=== PATIENT | female | born 1995 | race African-American/Black ===

== ENCOUNTER 2019-10-13 13:55 | Observation (INO) | payer OTHER ==
[~2019-10-13] VITALS: Ht 167.6 cm; Wt 101.2 kg
[2019-10-13 14:52] LABS: BASOPHILS % 0.7 % (0.0-1.0); EOSINOPHILS % 0.9 % (0.0-6.0); HEMATOCRIT 39.5 % (34.2-44.1); HEMOGLOBIN 12.5 g/dL (12.0-16.0); LYMPHOCYTES # (AUTO) 1.6 (1.0-3.2); MEAN CORPUSCULAR HEMOGLOBIN 25.7 pg (28-32); MEAN CORPUSCULAR HGB CONC 31.6 g/dL (31-35); MEAN CORPUSCULAR VOLUME 81.1 fL (81-99); MONOCYTES # (AUTO) 0.5 (0.2-0.8); MONOCYTES % 9.9 % (4.4-11.3); NEUTROPHILS # (AUTO) 2.4 (2.1-6.9); NEUTROPHILS % 53.3 % (38.7-80.0); PLATELET COUNT 250 x10e3/uL (140-360); RED BLOOD COUNT 4.87 x10e6/uL (3.6-5.1); RED CELL DISTRIBUTION WIDTH 13.7 % (11.7-14.4)
[2019-10-13 15:12] LABS: ALANINE AMINOTRANSFERASE 99 IU/L (0-55); ALBUMIN 3.8 g/dL (3.5-5.0); ALBUMIN/GLOBULIN RATIO 0.9 (0.8-2.0); ALKALINE PHOSPHATASE 112 IU/L (40-150); ANION GAP 13.4 mmol/L (8-16); BLOOD UREA NITROGEN 7 mg/dL (7-26); BUN/CREATININE RATIO 10 (6-25); CALCIUM 9.2 mg/dL (8.4-10.2); CARBON DIOXIDE 24 mmol/L (22-29); CHLORIDE 104 mmol/L (98-107); CREATININE, SERUM 0.73 mg/dL (0.57-1.11); EST GLOMERULAR FILTRATION RATE > 60 ML/MIN (60-); GLUCOSE 89 mg/dL (74-118); POTASSIUM 3.4 mmol/L (3.5-5.1); SODIUM 138 mmol/L (136-145)
--- NOTE | 2019-10-13 15:20 | Emergency Department Note ---
History of Present Illnes History of Present Illness Chief Complaint: Abdominal Complaints History of Present Illness This is a 24 year old female arrives to the ED with several days of right upper quadrant bandlike abdominal pain. Patient states she was seen at [facility] on Wednesday was told she has gallstones and instructed to follow-up with a GI doctor. Patient's eye GI doctor today and has a outpatient E GD/HIDA scan scheduled states she came in because of pain. . Historian: Patient Arrival Mode: Car Onset (how long ago): day(s) Radiation: Reports non-radiation Severity: mild Duration (how long): hour(s) Chronicity: recurrent Relieving factors: none Exacerbating factors: eating (KAE CANNON DO) Past Medical/Family History Physician Review I have reviewed the patient's past medical and family history. Any updates have been documented here. (KAE CANNON DO) Past Medical History Recent Fever: No Clinical Suspicion of Infectio: No New/Unexplained Change in Ment: No Other Medical History: gallstones gastritis Past Surgical History: None (KAE CANNON DO) Social History Smoking Cessation: Current some day smoker Alcohol Use: Social Physically hurt or threatened: No (KAE CANNON DO) Review of Systems Review of Systems Constitutional: Reports no symptoms EENTM: Reports no symptoms Cardiovascular: Reports no symptoms Respiratory: Reports no symptoms Gastrointestinal: Reports as per HPI, Reports abdominal pain Genitourinary: Reports no symptoms Musculoskeletal: Reports no symptoms Integumentary: Reports no symptoms Neurological: Reports no symptoms Psychological: Reports no symptoms Endocrine: Reports no symptoms Hematological/Lymphatic: Reports no symptoms (KAE CANNON DO) Physical Exam Related Data Allergies: Coded Allergies: No Known Allergies (Unverified , 10/13/19) Triage Vital Signs Vital Signs Date Time Temp Pulse Resp B/P (MAP) Pulse Ox O2 Delivery O2 Flow Rate FiO2 10/13/19 14:09 99.0 63 18 142/86 100 Room Air Vital signs reviewed: Yes (KAE CANNON DO) Physical Exam CONSTITUTIONAL Constitutional: Present well-developed, Present well-nourished HENT HENT: Present normocephalic, Present atraumatic, Present oropharynx clear/m oist, Present nose normal HENT L/R: Present left ext ear normal, Present right ext ear normal EYES Eyes: Reports PERRL, Reports conjunctivae normal NECK Neck: Present ROM normal PULMONARY Pulmonary: Present effort normal, Present breath sounds normal CARDIOVASCULAR Cardiovascular: Present regular rhythm, Present heart sounds normal, Present capillary refill normal, Present normal rate GASTROINTESTINAL Abdominal: Present soft, Present nontender, Present bowel sounds normal GENITOURINARY Genitourinary: Present exam deferred SKIN Skin: Present warm, Present dry MUSCULOSKELETAL Musculoskeletal: Present ROM normal NEUROLOGICAL Neurological: Present alert, Present oriented x 3, Present no gross motor or sensory deficits PSYCHOLOGICAL Psychological: Present mood/affect normal, Present judgement normal (KASSANDRA, KAE, DO) Results Laboratory Result Diagram: 10/13/19 1434 Laboratory Laboratory Tests Test 10/13/19 14:34 White Blood Count 4.54 x10e3/uL (4.8-10.8) Red Blood Count 4.87 x10e6/uL (3.6-5.1) Hemoglobin 12.5 g/dL (12.0-16.0) Hematocrit 39.5 % (34.2-44.1) Mean Corpuscular Volume 81.1 fL (81-99) Mean Corpuscular Hemoglobin 25.7 pg (28-32) Mean Corpuscular Hemoglobin Concent 31.6 g/dL (31-35) Red Cell Distribution Width 13.7 % (11.7-14.4) Platelet Count 250 x10e3/uL (140-360) Neutrophils (%) (Auto) 53.3 % (38.7-80.0) Lymphocytes (%) (Auto) 35.0 % (18.0-39.1) Monocytes (%) (Auto) 9.9 % (4.4-11.3) Eosinophils (%) (Auto) 0.9 % (0.0-6.0) Basophils (%) (Auto) 0.7 % (0.0-1.0) Neutrophils # (Auto) 2.4 (2.1-6.9) Lymphocytes # (Auto) 1.6 (1.0-3.2) Monocytes # (Auto) 0.5 (0.2-0.8) Eosinophils # (Auto) 0.0 (0.0-0.4) Basophils # (Auto) 0.0 (0.0-0.1) Absolute Immature Granulocyte (auto 0.01 x10e3/uL (0-0.1) (KAE CANNON DO) Imaging Imaging results reviewed: Yes (KAE CANNON DO) Imaging results reviewed: Yes Impressions IMPRESSION: 1. Marked distention of the gallbladder with extrahepatic biliary ductal dilatation measuring up to 9.5 mm. This constellation of findings may be due to extrahepatic biliary ductal obstruction. Recommend dedicated right upper quadrant ultrasound for further evaluation of these findings. 2. Left ovarian cyst which measures up to 3.9 cm. No additional follow-up recommended. Samanta D, Ken DL, Noemi RF. Management of asymptomatic ovarian and other adnexal cysts imaged at US: Society of Radiologists in Ultrasound Consensus Conference Statement. Radiology 2010; [id number] Signed by: Jesus Freire MD on 10/13/2019 8:27 PM (ALBERT RM MD) Assessment & Plan Medical Decision Making MDM 24-year-old female arrives the ED right upper quadrant abdominal pain, patient signed out to Dr. Rm to follow CT and disposition. (KAE CANNON DO) [facility] PT WITH OBSTRUCTED GALLBLADDER ADMIT (ALBERT RM MD) Reassessment Reassessment time: 21:00 Reassessment I REVIEWED LABS AND CT REPORT WITH PT, PT WILL NEED ADMISSION FOR FURTHER WORK UP AND POSSIBLE CHOLECYSTECTOMY AND ERCP. I SPOKE WITH DR LOVE, STATES ADMIT, CONSULT DR Alicia CHAVEZ AND ORDER MRCP IN AM (ALBERT RM MD) Assessment & Plan Final Impression: (1) Gallstones with obstruction of gallbladder (ALBERT RM MD) Depart Disposition: ADMITTED Last Vital Signs Date Time Temp Pulse Resp B/P (MAP) Pulse Ox O2 Delivery O2 Flow Rate FiO2 10/13/19 14:09 99.0 63 18 142/86 100 Room Air (KAE CANNON DO) Home Meds Reported Medications Noreth A-Et Estra/Fe Fumarate (MICROGESTIN FE 1-20 TABLET) 1 Each Tablet 10/14/19 Ketorolac Tromethamine (TORADOL) 10 Mg Tablet, 10 MG PO PRN 10/14/19 Pantoprazole Sodium (PROTONIX) 20 Mg Tablet., 40 MG PO DAILY, #30 TAB 10/14/19 KAE CANNON DO Oct 13, 2019 15:20 ALBERT RM MD Oct 13, 2019 21:02
[2019-10-13 18:49] LABS: CLARITY,URINE SL CLOUDY (CLEAR); COLOR,URINE AMBER (YELLOW); KETONES,URINE 1+ (NEGATIVE); LEUKOCYTE ESTERASE ,URINE NEGATIVE (NEGATIVE); NITRITE,URINE NEGATIVE (NEGATIVE); PROTEIN,URINE DIPSTICK NEGATIVE (NEGATIVE); URINE UROBILINOGEN 1 mg/dL (0.2 - 1)
[2019-10-13 18:50] LABS: BILIRUBIN,URINE LARGE (NEGATIVE)
[2019-10-13 18:52] LABS: PREGNANCY TEST, URINE NEGATIVE (NEGATIVE)
[2019-10-13 19:05] LABS: BACTERIA,URINE MANY /HPF; EPITHELIAL CELLS,URINE MODERATE /LPF; TRANSITIONAL EPI CELLS,URINE FEW
--- NOTE | 2019-10-13 20:31 | Diagnostic Imaging Report ---
EXAM: CT Abdomen and Pelvis WITHOUT contrast INDICATION: Right upper quadrant abdominal pain. COMPARISON: None. TECHNIQUE: Abdomen and pelvis were scanned utilizing a multidetector helical scanner from the lung base to the pubic symphysis without administration of IV contrast. Absence of intravenous contrast decreases sensitivity for detection of focal lesions and vascular pathology. Coronal and sagittal reformations were obtained. Routine protocol was performed. IV CONTRAST: None ORAL CONTRAST: None COMPLICATIONS: None RADIATION DOSE: Total DLP: 698.25 mGy*cm Estimated effective dose: (DLP x 0.015 x size factor) mSv CTDIvol has been reviewed. It is below the limits set by the Radiation Protocol Committee (RPC). Dose modulation, iterative reconstruction, and/or weight based adjustment of the mA/kV was utilized to reduce the radiation dose to as low as reasonably achievable. FINDINGS: LINES and TUBES: None. LOWER THORAX: There is bibasilar atelectasis. The base of the heart is normal for image technique. HEPATOBILIARY: No focal hepatic lesions. There is extrahepatic biliary ductal dilatation measuring up to 9.5 mm. GALLBLADDER: There is marked distention of the gallbladder with intraluminal layering radiodensity. No gallbladder wall thickening or pericholecystic fluid. SPLEEN: No splenomegaly. PANCREAS: No focal masses or ductal dilatation. ADRENALS: No adrenal nodules KIDNEYS/URETERS: No hydronephrosis. No cystic or solid mass lesions. No stones. GI TRACT: No abnormal distention, wall thickening, or evidence of bowel obstruction. Appendix is normal. PELVIC ORGANS/BLADDER: There is a left ovarian cyst which measures approximately 3.9 x 3.9 cm. The pelvic structures are otherwise normal for image technique. LYMPH NODES: No lymphadenopathy. VESSELS: Unremarkable. PERITONEUM / RETROPERITONEUM: No free air or fluid. BONES: Unremarkable. SOFT TISSUES: Unremarkable. IMPRESSION: 1. Marked distention of the gallbladder with extrahepatic biliary ductal dilatation measuring up to 9.5 mm. This constellation of findings may be due to extrahepatic biliary ductal obstruction. Recommend dedicated right upper quadrant ultrasound for further evaluation of these findings. 2. Left ovarian cyst which measures up to 3.9 cm. No additional follow-up recommended. Samanta D, Ken DL, Noemi RF. Management of asymptomatic ovarian and other adnexal cysts imaged at US: Society of Radiologists in Ultrasound Consensus Conference Statement. Radiology 2010; [id number] Signed by: Jesus Freire MD on 10/13/2019 8:27 PM
[2019-10-13 21:00] VITALS: BP 120/72
[2019-10-13] MEDS ORDERED: MORPHINE SULFATE 2 MG/ML SYR 1ML IV PRN (21:15)
[2019-10-13] MEDS ORDERED: ONDANSETRON HCL INJ 2MG/ML 2ML 2 MG/ML VIAL IV PRN (21:15)
[2019-10-13] MEDS ORDERED: PIPER-TAZ 3.375 GM / NS 50ML IV SCH (21:15)
[2019-10-13] MEDS: PIPER-TAZ 3.375 GM 50 ML IV SCH (21:24)
[2019-10-13] MEDS: SODIUM CHLORIDE 0.9% 1000ML 1,000 ML IV SCH (21:24)
[2019-10-13 21:45] VITALS: BP 118/74
[2019-10-13 22:43] VITALS: BP 130/73
--- NOTE | 2019-10-13 23:00 | NUR ---
Received patient from ER, patient is alert and oriented x3, safety and fall precaution maintained as per hospital protocol: bed in lowest position and locked, needed items beside bed and call bonilla placed close to patient, patient instructed to use it to call nurses for any assistance needed, patient verbalized understanding. patient is currently stable, will continue to monitor.
[2019-10-14] MEDS ORDERED: PROTONIX20 MG PO (00:20)
[2019-10-14] MEDS ORDERED: KETOROLAC TROME10 MG PO (00:25)
[2019-10-14] MEDS ORDERED: MICROGESTIN FE1 EAC1 (00:26)
[2019-10-14 00:58] VITALS: BP 129/77
--- NOTE | 2019-10-14 02:26 | Diagnostic Imaging Report ---
EXAMINATION: MRI Abdomen without contrast/MRCP. TECHNIQUE: Axial T1 nonfat sat in and out of phase, axial T2 fat sat, coronal T2 with and without fat sat, axial DWI and ADC MR images of the abdomen were obtained. No gadolinium was administered. Heavily T2-weighted MRCP images were also performed, including thick and thin slab MRCP ASSETT and 3-D reconstructions. CLINICAL HISTORY:Cholelithiasis, evaluate for choledocholithiasis. COMPARISON: CT abdomen and pelvis 10/13/2019 FINDINGS: LACK OF GADOLINIUM DECREASES SENSITIVITY FOR DETECTION OF INTRA-ABDOMINAL PATHOLOGY. LOWER THORAX: Mild bilateral basal atelectatic changes.. LIVER: Normal hepatic size and contour.. No hepatic signal abnormality. No focal T2 hyperintense hepatic lesions. BILIARY: * Mild prominence of the central intrahepatic bile ducts.. * The common bile duct measures approximately 10 mm at the randall hepatis and 9 mm at the pancreatic head. There is smooth luminal contour and tapering to the ampulla. No intraluminal filling defects, strictures or extrinsic compressions are identified (series 11, image 9 and series 8, image 22). * Hydropic gallbladder, which measures approximately 10.6 x 4.1 cm. * Multiple T2 hypointense filling defects measuring up to 4 mm are noted in the gallbladder lumen, consistent with gallstones. No wall thickening. No pericholecystic fluid. PANCREAS: No mass or ductal dilatation. SPLEEN: No splenomegaly. ADRENALS: No nodules. KIDNEYS: No hydronephrosis, solid or cystic mass in the imaged portion of the kidneys. PERITONEUM / RETROPERITONEUM: No upper abdominal free fluid. GI TRACT: Visualized bowel shows no dilation or obstruction. LYMPH NODES: No upper abdominal lymphadenopathy. VESSELS: Normal flow voids are identified.. . . BONES AND SOFT TISSUES: No abnormal bone marrow signal. No soft tissue abnormalities. IMPRESSION: 1. Mild prominence of the central intrahepatic bile ducts and mild dilation of the common bile duct. Normal luminal contour and tapering to the ampulla. No intraluminal filling defects to suggest choledocholithiasis. 2. Hydropic gallbladder with cholelithiasis. No MR evidence of acute cholecystitis. Signed by: Dr. Pasha Torrez M.D. on 10/14/2019 2:22 AM
[2019-10-14 05:04] VITALS: BP 130/91
[2019-10-14 05:14] LABS: BASOPHILS % 0.7 % (0.0-1.0); EOSINOPHILS # (AUTO) 0.1 (0.0-0.4); EOSINOPHILS % 1.3 % (0.0-6.0); HEMATOCRIT 34.2 % (34.2-44.1); LYMPHOCYTES # (AUTO) 1.4 (1.0-3.2); LYMPHOCYTES % 30.1 % (18.0-39.1); MEAN CORPUSCULAR HEMOGLOBIN 27.1 pg (28-32); MEAN CORPUSCULAR HGB CONC 32.2 g/dL (31-35); MEAN CORPUSCULAR VOLUME 84.2 fL (81-99); MONOCYTES # (AUTO) 0.5 (0.2-0.8); MONOCYTES % 10.5 % (4.4-11.3); NEUTROPHILS # (AUTO) 2.6 (2.1-6.9); NEUTROPHILS % 57.2 % (38.7-80.0); PLATELET COUNT 202 x10e3/uL (140-360); RED BLOOD COUNT 4.06 x10e6/uL (3.6-5.1); RED CELL DISTRIBUTION WIDTH 13.9 % (11.7-14.4)
[2019-10-14] MEDS: SODIUM CHLORIDE 0.9% 1000ML 1,000 ML IV SCH (05:15)
[2019-10-14 05:34] LABS: ALANINE AMINOTRANSFERASE 84 IU/L (0-55); ALBUMIN 3.1 g/dL (3.5-5.0); ALBUMIN/GLOBULIN RATIO 0.8 (0.8-2.0); ALKALINE PHOSPHATASE 103 IU/L (40-150); AMYLASE 28 U/L (25-125); ANION GAP 15.3 mmol/L (8-16); BLOOD UREA NITROGEN 5 mg/dL (7-26); BUN/CREATININE RATIO 7 (6-25); CALCIUM 8.5 mg/dL (8.4-10.2); CARBON DIOXIDE 24 mmol/L (22-29); CHLORIDE 104 mmol/L (98-107); EST GLOMERULAR FILTRATION RATE > 60 ML/MIN (60-); GLUCOSE 84 mg/dL (74-118); LIPASE 15 U/L (8-78); POTASSIUM 3.3 mmol/L (3.5-5.1); SODIUM 140 mmol/L (136-145)
[2019-10-14] MEDS: PIPER-TAZ 3.375 GM 50 ML IV SCH ×3 (05:42→22:00)
--- NOTE | 2019-10-14 06:55 | NUR ---
Patient endorsed to next shift for continuity of care.
--- NOTE | 2019-10-14 07:35 | NUR ---
Patient endorsed to next shift for continuity of care.
[2019-10-14 08:06] VITALS: BP 130/91
[2019-10-14 08:07] VITALS: BP 132/87
[2019-10-14] MEDS ORDERED: BUPIVACAINE HCL 0.5% INJ 30 ML VIAL INJ ONE (08:25)
[2019-10-14] MEDS ORDERED: SUGAMMADEX SODIUM 200 MG/2 ML VIAL IV ONE (09:12)
--- NOTE | 2019-10-14 09:15 | NUR ---
Patient left the floor to go to OR.
[2019-10-14] MEDS ORDERED: ACETAMINOPHEN 325 MG TAB PO PRN (10:15)
[2019-10-14] MEDS ORDERED: HYDROCODONE/APAP 5MG-325MG TAB PO PRN (10:15)
--- NOTE | 2019-10-14 10:36 | Operative Report ---
DATE OF PROCEDURE: 10/14/2019 SURGEON: Mega Juarez MD PREOPERATIVE DIAGNOSES: Acute cholecystitis and cholelithiasis. POSTOPERATIVE DIAGNOSES: Acute cholecystitis and cholelithiasis. PROCEDURES PERFORMED: Diagnostic laparoscopy, laparoscopic cholecystectomy. SUPERVISOR WINTER: None. ANESTHESIA: General endotracheal. INDICATIONS AND FINDINGS: The patient is a 24-year-old female with known history of gallstones, admitted with complaints of epigastric right upper quadrant abdominal pain. Workup revealed distended gallbladder, gallstones. Preop MRCP was negative for common bile duct stones. Surgery based on the gallbladder was massively distended containing multiple small stones. Cystic duct was about 3 mm in diameter. Common bile duct was about 10 mm in diameter. Liver, stomach, lower abdomen all appeared normal. TECHNIQUE: After adequate general endotracheal anesthesia, the patient in supine position, the abdomen was prepped and draped in a sterile fashion with ChloraPrep solution. Skin in the umbilicus was infiltrated with 0.5% Marcaine. Incision was made in the umbilicus. Abdominal wall was elevated and Veress needle was introduced. Pneumoperitoneum was then created. A 10 mm trocar and cannula was then passed through the umbilical wound. Laparoscopic camera was introduced. Initial laparoscopy revealed the gallbladder very distended, mildly edematous. Liver, stomach, lower abdomen all appeared normal. A 10 mm trocar and cannula was placed in the epigastrium. Two 5 mm trocars and cannulas were placed in right upper quadrant. These were placed under direct vision. Peritoneum over the neck of the gallbladder was incised. The gallbladder, cystic duct junction was dissected free. Cystic artery was also dissected free. The neck of the gallbladder completely dissected free. Cystic artery was divided between hemoclips close to the gallbladder. Cystic duct was milked back towards the gallbladder, then divided between hemoclips with 3 clips being left on the common bile duct side. There was a posterior branch of cystic artery, which was also divided between hemoclips. The gallbladder was dissected free from the liver using scissors and electrocautery. Once it was entirely free, it was placed into an Endopouch and brought out through the epigastric cannula. There were multiple small stones. Gallbladder bed was inspected for hemostasis, which was seen to be adequate. It was irrigated with saline. All fluid aspirated, inspected once again for hemostasis, which was seen to be adequate. Instruments and cannulas were removed. Pneumoperitoneum was evacuated. Wounds were then closed, fascia in the umbilical and epigastric wound closed with 0 Vicryl. Skin to all wounds closed with 4-0 Vicryl in subcuticular fashion. Dermabond and sterile dressing were applied. The patient tolerated the procedure well. Estimated blood loss was 20 mL. There were no complications. All counts were correct. The patient was taken to the recovery room in satisfactory condition. MD JULIO Santana/CONRADOL /[id number]
[2019-10-14] MEDS ORDERED: FENTANYL CITRATE/PF 100MCG/2 ML INJ ONE ×2 (10:37→16:41)
--- NOTE | 2019-10-14 11:05 | NUR ---
Patient is back to the floor from OR s/p lap cholecystecomy. Trochar sites are covered with bandaids and are dry and intact. The patient has already been up after surgery and ambulated to the bathroom and voided. Patient was educated on calling for help to go to the bathroom due to any sedation from surgery. She denies needing anything else at this time, call light in reach.
[2019-10-14] MEDS: DEXTROSE 5%/0.45% SOD CHL 1,000 ML IV SCH ×2 (11:21→22:22)
[2019-10-14 11:28] LABS: EOSINOPHILS % (MANUAL) 1 % (0-7); LYMPHOCYTES % (MANUAL) 30 % (19-48); MONOCYTES % (MANUAL) 9 % (3.4-9.0); NEUTROPHILS % (MANUAL) 59 % (40-74); PLATELET ESTIMATE ADEQUATE; PLATELET MORPHOLOGY COMMENT NORMAL; RBC MORPHOLOGY COMMENT NORMAL
[2019-10-14] MEDS: MORPHINE SULFATE INJ 4 MG/ML INJ 1ML IV PRN ×2 (11:45→15:42)
[2019-10-14] MEDS: ONDANSETRON HCL INJ 2MG/ML 2ML 2 MG/ML VIAL IV PRN ×2 (12:16→16:45)
[2019-10-14] MEDS ORDERED: ACETAMINOPHEN 1000 MG/100 ML IV ONE (14:32)
[2019-10-14] MEDS ORDERED: SEVOFLURANE INHAL SOLN 250 ML PEN BTL ONE (14:32)
[2019-10-14] MEDS ORDERED: ROCURONIUM BROMIDE 10 MG/ML 5ML VIAL IV ONE (14:32)
[2019-10-14] MEDS ORDERED: LIDOCAINE HCL 2% LOCAL INJ 5 ML SDV VIAL INJ ONE (14:32)
[2019-10-14] MEDS ORDERED: ONDANSETRON HCL INJ 2MG/ML 2ML 2 MG/ML VIAL ONE (14:32)
[2019-10-14] MEDS ORDERED: DEXAMETHASONE SOD PHOS INJ 4 MG/ML VIAL ONE (14:32)
[2019-10-14] MEDS ORDERED: PROPOFOL IV EMULSION 10 MG/ML 20 ML VIAL ONE (14:32)
[2019-10-14 16:17] VITALS: BP 139/98
[2019-10-14] MEDS ORDERED: PANTOPRAZOLE SOD 40 MG TABEC PO SCH (18:00)
--- NOTE | 2019-10-14 18:00 | NUR ---
Patient up and ambulating in the hallway
--- NOTE | 2019-10-14 19:00 | NUR ---
Completed bedside shift report with morning nurse. Pt alert and oriented to name, lying in bed HOB 45 degrees. Denies pain at this time. s/p lap pushpa x4 trocar sites c/d/i. call light within reach.
[2019-10-14 20:00] VITALS: BP 144/93
[2019-10-15] VITALS: BP 124/73
[2019-10-15 01:29] VITALS: BP 144/93
[2019-10-15] MEDS: PIPER-TAZ 3.375 GM 50 ML IV SCH (06:00)
[2019-10-15 06:38] LABS: ALANINE AMINOTRANSFERASE 122 IU/L (0-55); ALBUMIN 2.9 g/dL (3.5-5.0); ALBUMIN/GLOBULIN RATIO 0.8 (0.8-2.0); ALKALINE PHOSPHATASE 99 IU/L (40-150); ANION GAP 10.7 mmol/L (8-16); BLOOD UREA NITROGEN < 5 mg/dL (7-26); CALCIUM 8.6 mg/dL (8.4-10.2); CARBON DIOXIDE 25 mmol/L (22-29); CHLORIDE 104 mmol/L (98-107); CREATININE, SERUM 0.71 mg/dL (0.57-1.11); EST GLOMERULAR FILTRATION RATE > 60 ML/MIN (60-); GLUCOSE 128 mg/dL (74-118); POTASSIUM 3.7 mmol/L (3.5-5.1); SODIUM 136 mmol/L (136-145)
[2019-10-15 06:58] LABS: BUN/CREATININE RATIO 7 (6-25)
[2019-10-15 07:30] VITALS: BP 144/93
[2019-10-15] MEDS ORDERED: PANTOPRAZOLE SOD 40 MG TABEC PO SCH (07:30)
--- NOTE | 2019-10-15 08:05 | NUR ---
Dr. Juarez made rounds earlier and said patient can dc home today. Patient has already showered and IV was removed from left EJ with tip intact. Discharge instructions were discussed with the patient and she verbalized understanding. Dr. Juarez wrote a prescription for ultracet , Patient states " I cant take Tramadol it gives me anxiety and makes my heart race real bad". I explained Dr. Juarez has left the building and cant write another prescription at this time. [facility]. Witnessed by second RN , Nabila Roach. Patient refused prescription. She has left over Ketoralac and said she will call Dr. Quinteros office tomorrow if she feels she needs something else to control her pain.
--- NOTE | 2019-10-16 12:54 | Pre Op History & Physical ---
CHIEF COMPLAINT: Abdominal pain. HISTORY OF PRESENT ILLNESS: The patient is a 24-year-old female, presents with complaints of epigastric right upper quadrant abdominal pain. She says she has pain for a couple of weeks, but got worse on a few days prior to admission. She has had associated nausea. She had known history of gallstones. There were no symptoms of jaundice. The patient says the pain is somewhat less now. She came to emergency room, where CT of the abdomen revealed distended gallbladder. MRCP was done, which revealed gallstones, but no common bile duct stones. PAST MEDICAL HISTORY: Otherwise, unremarkable. She says she has a history of asthma, was on no medication for this. ALLERGIES: SHE HAS NO KNOWN ALLERGIES. PAST SURGICAL HISTORY: Only previous surgery is removal of wisdom teeth. MEDICATIONS: At home were control pills and Protonix. FAMILY HISTORY: Noncontributory. SOCIAL HISTORY: The patient does not smoke cigarettes. She drink alcohol. REVIEW OF SYSTEMS: As stated above, otherwise was negative. PHYSICAL EXAMINATION: GENERAL: The patient is awake and alert, in no distress. VITAL SIGNS: Reveal heart rate in the 90s. She is afebrile. Blood pressure is normal. HEENT: Sclera is not icteric. NECK: No masses. LUNGS: Equal breath sounds are clear bilaterally. CARDIAC: Regular rate and rhythm. Normal S1 and S2 without murmur, S3, or S4. ABDOMEN: Tender in the epigastrium. There is no distention. No mass. No organomegaly. EXTREMITIES: Have no edema. Pulses are palpable. NEUROLOGIC: Intact. ASSESSMENT: A 24-year-old female with findings suggestive of [id number] cholecystitis, cholelithiasis. She has mild elevated bilirubin. MRCP is negative. An elevated bilirubin could be due to acute cholecystitis. The patient will most benefit from cholecystectomy. Plan to schedule for this morning. The procedure was explained to the patient including risks, benefits, and alternatives. She understands she has had the opportunity to ask questions. She is aware of the possible need for open surgery. MD JULIO Santana/BELIA /[id number]
--- OUTSIDE RECORDS SUMMARY | 2019-10-27 12:47 | XMS REPORT | Continuity of Care Document ---
Author Author [facility] t Organization [facility] Address [address] [place] [address] Phone Unavailable Care Team Providers Care Digital Ad Trafficker Name Role Phone NONSTAFF PCP Unavailable KEVIN LOVE Unavailable Alyson Baker MD Attphys ALYSON BAKER Attphys Unavailable Mel Mims MD Attphys MEL MIMS Unavailable KEVIN LOVE Unavailable Payers Payer Name Policy Type Policy Number Effective Date Expiration Date [facility] CH OICE [id number] xxxxxxxxxxxx [facility] Problems Condition Name Condition Details Condition Category Status Onset Date Resolution Date Last Treatment Date Treating Clinician Comments Source Calculus of gallbladder with obstruction Problem Active [facility] Allergies, Adverse Reactions, Alerts Allergy Name Allergy Type Status Severity Reaction(s) Onset Date Inacti ve Date Treating Clinician Comments Source amoxicillin [place]rate [place] 2019-10-11 00:00:00 [facility] potassium clavulanate [place] 2019-10-11 00:00:00 [facility] amoxicillin trihydrate [place] 2010-07-19 00:00:00 [facility] potassium clavulanate [place] 2010-07-19 00:00:00 [facility] Family History Family Member Diagnosis Comments Start Date Stop Date Source Natural father Diabetes [facility] Maternal aunt Diabetes [facility] Maternal grandmother Cancer [facility] Maternal grandmother Diabetes [facility] Social History Social Habit Start Date Stop Date Quantity Comments Source History SDOH Alcohol Std Drinks [facility] History SDOH Alcohol Binge [facility] Sex Assigned At [facility] History SDOH Alcohol Frequency 2018-12-14 00:00:00 2018-12-14 00:00:0 0 1 [facility] Smoking Status Start Date Stop Date Source Never smoker [facility] Medications Ordered Medication Name Filled Medication Name Start Date Stop Da te Current Medication? Ordering Clinician Indication Dosage Frequency Signature (SIG) Comments Components Source ranitidine (ZANTAC) 150 MG capsule 2019-01-04 02:58:45 201 12-06-08 00:00:00 No 150mg Q.5D Take 150 mg by mouth 2 (two) times daily . [facility] pantoprazole (PROTONIX) 20 MG tablet 2019-01-04 00:00: 00 2020-01-04 23:59:00 No 20mg QD Take 1 tablet (20 mg total) by mouth lima graeme. [facility] albuterol (ACCUNEB) 0.63 mg/3 mL nebulizer solution 12-14 20:34:09 Yes 1{ampule} Take 1 ampule by nebulization every 6 (six) hours as needed for Wheezing. [facility] fluticasone propion-salmeterol (ADVAIR) 100-50 mcg/dose disk us inhaler 2018-12-14 20:34:09 Yes 1{puff} Inhale 1 puff by mouth via inhaler every 12 (twelve) hours. [facility] norethindrone-ethinyl estradiol (JUNEL F E 04/17) 1 mg-20 mcg (21)/75 mg (7) per tablet 2018-12-14 20:33:32 Yes 1{tbl} QD Take 1 tablet by mouth daily. [facility] ([facility] 150 MG capsule 2018-12-14 00:00:00 202 23:59:00 No 150mg QD Take 1 capsule (150 mg total) by mouth nicole santiago. [facility] Ketorolac Tromethamine (Toradol) 10 Mg TABLET Ketorola c Tromethamine (Toradol) 10 Mg TABLET Yes 10 As Needed [facility] Noreth A-Et Estra/Fe Fumarate (Microgestin Fe 1-20 Tab let) 1 Each TABLET Noreth A-Et Estra/Fe Fumarate (Microgestin Fe 1-20 Tablet) 1 Each TABLET Yes [facility] Pantoprazole Sodium (Protonix) 20 Mg TABLET. Pantopr azole Sodium (Protonix) 20 Mg TABLET. Yes 40 Daily [facility] Vital Signs Vital Name Observation Time Observation Value Comments Source Body Temperature 2019-10-15 01:29:00 98.1 [degF] [facility] BMI (Body Mass Index) 2019-10-14 01:08:00 36.0 kg/m2 [facility] Weight 2019-10-13 22:43:00 223.13 [lb_av] [facility] Systolic blood pressure 2019-01-04 05:47:00 131 mm[Hg] [facility] Diastolic blood pressure 2019-01-04 05:47:00 77 mm[Hg] [facility] Heart rate 2019-01-04 05:47:00 81 /min [facility] Respiratory rate 2019-01-04 05:47:00 18 /min [facility] Body temperature 2019-01-04 02:55:00 37.28 Anais [facility] Body height 2019-01-04 02:55:00 167.6 cm [facility] Body weight Measured 2019-01-04 02:55:00 120.203 kg [facility] BMI 2019-01-04 02:55:00 42.77 kg/m2 [facility] Oxygen saturation in Arterial blood by Pulse oximetry 2018-03 02:55:00 98 /min [facility] Procedures Procedure Date / Time Performed Performing Clinician Jaye triplett Magnetic resonance cholangiopancreatography (MRCP) wit hout contrast 2019-10-14 00:00:00 [facility] CT of abdomen and pelvis without contrast 2019-10-13 00:00:00 [facility] US ABDOMEN LIMITED 2019-01-04 04:25:00 Sidney Baker [facility] PLACE NEEDLE IN VEIN 2019-01-04 04:12:31 Sidney Baker [facility] BASIC METABOLIC PANEL (7) 2019-01-04 04:12:00 Sidney Baker [facility] LIPASE 2019-01-04 04:12:00 Sidney Baker [facility] HEPATIC FUNCTION PANEL 2019-01-04 04:12:00 Sidney Baker [facility] CBC W/PLT COUNT & AUTO DIFFERENTIAL 2019-01-04 04:12:00 Sidney Baker [facility] RHYTHM STRIP - SCAN 2018-12-22 17:40:25 Provider, Tonja khan [facility] BASIC METABOLIC PANEL (7) 2018-12-14 22:42:00 Edelmira Mims se [facility] CREATINE KINASE (CK) 2018-12-14 22:42:00 Edelmira Mims [facility] TROPONIN I 2018-12-14 22:42:00 Edelmira Mims [facility] LIPASE 2018-12-14 22:42:00 Edelmira Mims [facility] HEPATIC FUNCTION PANEL 2018-12-14 22:42:00 Edelmira Mims [facility] XR CHEST 2 VIEWS 2018-12-14 22:30:00 Edelmira Mims [facility] SCREEN, URINE 2018-12-14 21:45:00 Edelmira Mims [facility] CBC W/PLT COUNT & AUTO DIFFERENTIAL 2018-12-14 21:45:00 Roberto Mims [facility] ED ECG INTERPRETATION 2018-12-14 20:55:42 Edelmira Mims [facility] ECG 12-LEAD 2018-12-14 20:25:33 Edelmira Mims [facility] Plan of Care Planned Activity Planned Date Details Comments Source Instructions Abdominal Pain - Adult [facility] Instructions Cholelithiasis [facility] Encounters Start Date/Time End Date/Time Encounter Type Admission Type [facility] Department Encounter ID Source 2019-10-13 21:05:00 2019-10-15 08:10:00 Discharged Inpatient 1 KEVIN LOVE [facility] [id number] [facility] Results Test Description Test Time Test Comments Results Result Comments Source Serum or plasma sodium measurement (moles/volume) 2019-10-15 05:05:00 Test Item Sodium Level (test code = 2951-2) 136 136-145 [facility] potassium measurement (moles/volume)2019-10-15 05:05:00* Test Item Value Reference Range Interpretation Comments Potassium Level (test code = 2823-3) 3.7 3.5-5.1 [facility] chloride measurement (moles/volume)2019-10-15 05:05:00* Test Item Value Reference Range Interpretation Comments Chloride Level (test code = 2075-0) 104 98-107 [facility] carbon dioxide, total measurement (moles/volume)2019-10-15 05:05:00* Test Item Value Reference Range Interpretation Comments Carbon Dioxide Level (test code = 2028-9) 25 22-29 [facility] plasma anion [id number] 05:05:00* Test Item Value Reference Range Interpretation Comments Anion Gap (test code = 82235-6) 10.7 8-16 [facility] urea nitrogen measurement (mass/volume)2019-10-15 05:05:00* Test Item Value Reference Range Interpretation Comments Blood Urea Nitrogen (test code = 3094-0) < 5 7-26 [facility] plasma creatinine measurement (mass/volume)2019-10-15 05:05:00* Test Item Value Reference Range Interpretation Comments Creatinine (test code = 2160-0) 0.71 0.57-1.11 [facility] or plasma urea nitrogen/creatinine mass [id number] 05:05:00* Test Item Value Reference Range Interpretation Comments BUN/Creatinine Ratio (test code = 3097-3) 7 6-25 [facility]wood[facility]ated glomerular filtration rate (GFR) vohnymxzxcwvr1505-36-65 05:05:00* Test Item Value Reference Range Interpretation Comments Estimat Glomerular Filtration Rate (test code = 626664405) > 60 >60 Ranges were taken from the National Kidney Disease Education Program and the [facility] literature.Reference ranges:60 or greater: Qxdktq95-82 ( for 3 consecutive months): Chronic kidney disease 15 or less: Kidney failureMemorial Hermann Surgical Hospital KingwoodGlucose rrddfnkxasj0318-77-31 05:05:00* Test Item Value Reference Range Interpretation Comments Glucose Level (test code = VSS7500) 128 74-118 [facility] plasma calcium measurement (mass/volume)2019-10-15 05:05:00* Test Item Value Reference Range Interpretation Comments Calcium Level (test code = 16586-8) 8.6 8.4-10.2 [facility] plasma total bilirubin measurement (mass/volume)2019-10-15 05:05:00* Test Item Value Reference Range Interpretation Comments Total Bilirubin (test code = 1975-2) 3.6 0.2-1.2 [facility] KingwoodFluoroscopic procedure less than one hour szzbdiza0114-55-86 05:05:00* Test Item Value Reference Range Interpretation Comments Aspartate Amino Transf (AST/SGOT) (test code = Aspartate Amino Transf (AST/SGOT)) 79 5-34 [facility] plasma alanine aminotransferase measurement (enzymatic activity/volume)2019-10-15 05:05:00* Test Item Value Reference Range Interpretation Comments Alanine Aminotransferase (ALT/SGPT) (test code = 1742-6) 122 0-55 [facility] plasma protein measurement (mass/volume)2019-10-15 05:05:00* Test Item Value Reference Range Interpretation Comments Total Protein (test code = 2885-2) 6.5 6.5-8.1 [facility] plasma albumin measurement (mass/volume)2019-10-15 05:05:00* Test Item Value Reference Range Interpretation Comments Albumin (test code = 1751-7) 2.9 3.5-5.0 [facility]woodPlasma globulin measurement (mass/volume) 2019-10-15 05:05:00* Test Item Value Reference Range Interpretation Comments Globulin (test code = 49062-3) 3.6 2.3-3.5 [facility] albumin/globulin mass pmitc9771-45-21 05:05:00* Test Item Value Reference Range Interpretation Comments Albumin/Globulin Ratio (test code = 1759-0) 0.8 0.8-2.0 [facility] or plasma alkaline phosphatase measurement (enzymatic activity/volume)2019-10-15 05:05:00* Test Item Value Reference Range Interpretation Comments Alkaline Phosphatase (test code = 6768-6) 99 40-150 [facility]woodBlood leukocytes automated count (number/volume)2019-10-14 04:55:00* Test Item Value Reference Range Interpretation Comments White Blood Count (test code = 6690-2) 4.59 4.8-10.8 [facility]wood[facility] erythrocytes automated count (number/volume)2019-10-14 04:55:00* Test Item Value Reference Range Interpretation Comments Red Blood Count (test code = 789-8) 4.06 3.6-5.1 [facility]woodBlood hemoglobin measurement (moles/volume)2019-10-14 04:55:00* Test Item Value Reference Range Interpretation Comments Hemoglobin (test code = 65296-2) 11.0 12.0-16.0 [facility] KingwoodAutomated blood hematocrit (volume fraction)2019-10-14 04:55:00* Test Item Value Reference Range Interpretation Comments Hematocrit (test code = 4544-3) 34.2 34.2-44.1 [facility] KingwoodAutomated erythrocyte mean corpuscular ydhkiw2580-57-18 04:55:00* Test Item Value Reference Range Interpretation Comments Mean Corpuscular Volume (test code = 787-2) 84.2 81-99 [facility] KingwoodAutomated erythrocyte mean corpuscular hemoglobin (mass per erythrocyte)2019-10-14 04:55:00* Test Item Value Reference Range Interpretation Comments Mean Corpuscular Hemoglobin (test code = 785-6) 27.1 28-32 [facility] KingwoodAutomated erythrocyte mean corpuscular hemoglobin concentration measurement (mass/volume)2019-10-14 04:55:00* Test Item Value Reference Range Interpretation Comments Mean Corpuscular Hemoglobin Concent (test code = 786-4) 32.2 31-35 [facility] KingwoodRDW JgsDi-Jgp1631-78-18 04:55:00* Test Item Value Reference Range Interpretation Comments Red Cell Distribution Width (test code = 12218-5) 13.9 11.7 -14.4 [facility] KingwoodAutomated blood platelet count (count/volume)2019-10-14 04:55:00* Test Item Value Reference Range Interpretation Comments Platelet Count (test code = 777-3) 202 140-360 [facility] KingwoodAutquorum healthed blood segmented neutrophil count as percentage of total htzagphxkm1906-59-95 04:55:00* Test Item Value Reference Range Interpretation Comments Neutrophils (%) (Auto) (test code = 67119-6) 57.2 38.7-80.0 [facility] KingwoodAutomated blood lymphocyte count as percentage ot total smpmmwglju1068-24-24 04:55:00* Test Item Value Reference Range Interpretation Comments Lymphocytes (%) (Auto) (test code = 736-9) 30.1 18.0-39.1 [facility] KingwoodAutomated blood monocyte count as percentage of total hlsflhxgib7838-02-45 04:55:00* Test Item Value Reference Range Interpretation Comments Monocytes (%) (Auto) (test code = 5905-5) 10.5 4.4-11.3 [facility] KingwoodAutomated blood eosinophil count as percentage of total gjmiojahzc1980-93-74 04:55:00* Test Item Value Reference Range Interpretation Comments Eosinophils (%) (Auto) (test code = 713-8) 1.3 0.0-6.0 [facility] KingwoodAutomated blood basophil count as percentage of total esnnnxsskp2378-26-70 04:55:00* Test Item Value Reference Range Interpretation Comments Basophils (%) (Auto) (test code = 706-2) 0.7 0.0-1.0 [facility] KingwoodFluoroscopic procedure less than one hour xxzjzxjn8043-11-50 04:55:00* Test Item Value Reference Range Interpretation Comments IM GRANULOCYTES % (test code = IM GRANULOCYTES %) 0.2 0.0- 1.0 [facility] KingwoodAutomated blood neutrophil count 2019-10-14 04:55:00* Test Item Value Reference Range Interpretation Comments Neutrophils # (Auto) (test code = 751-8) 2.6 2.1-6.9 [facility]woodBlood lymphocytes count (number/volume) 2019-10-14 04:55:00* Test Item Value Reference Range Interpretation Comments Lymphocytes # (Auto) (test code = 48455-7) 1.4 1.0-3.2 [facility] KingwoodBlood monocytes automated count (number/volume)2019-10-14 04:55:00* Test Item Value Reference Range Interpretation Comments Monocytes # (Auto) (test code = 742-7) 0.5 0.2-0.8 [facility] KingwoodAutomated blood eosinophil count 2019-10-14 04:55:00* Test Item Value Reference Range Interpretation Comments Eosinophils # (Auto) (test code = 711-2) 0.1 0.0-0.4 [facility] KingwoodAutomated blood basophil count (count/volume)2019-10-14 04:55:00* Test Item Value Reference Range Interpretation Comments Basophils # (Auto) (test code = 704-7) 0.0 0.0-0.1 [facility] KingwoodFluoroscopic procedure less than one hour xigzseqp6779-16-52 04:55:00* Test Item Value Reference Range Interpretation Comments Absolute Immature Granulocyte (auto (shahriar t code = Absolute Immature Granulocyte (auto) 0.01 0-0.1 [facility] KingwoodFluoroscopic procedure less than one hour ackwlakk9865-77-50 04:55:00* Test Item Value Reference Range Interpretation Comments Differential Total Cells Counted (test code = Differfrandy tial Total Cells Counted) 100 [facility] blood neutrophils/100 leukocytes 2019-10-14 04:55:00* Test Item Value Reference Range Interpretation Comments Neutrophils % (Manual) (test code = 56865-4) 59 40-74 [facility] blood lymphocytes/100 leukocytes 2019-10-14 04:55:00* Test Item Value Reference Range Interpretation Comments Lymphocytes % (Manual) (test code = 737-7) 30 19-48 [facility] blood monocytes/100 leukocytes 2019-10-14 04:55:00* Test Item Value Reference Range Interpretation Comments Monocytes % (Manual) (test code = 744-3) 9 3.4-9.0 [facility] blood eosinophil count as percentage of total kotaektpax0544-24-24 04:55:00* Test Item Value Reference Range Interpretation Comments Eosinophils % (Manual) (test code = 714-6) 1 0-7 [facility] KingwoodManual basophil lbpriwzrfp8795-77-99 04:55:00* Test Item Value Reference Range Interpretation Comments Basophils % (Manual) (test code = 16188-7) 1 0-1.5 [facility]woodBlood platelets count by estimate (number/volume)2019-10-14 04:55:00* Test Item Value Reference Range Interpretation Comments Platelet Estimate (test code = 55871-6) ADEQUATE [facility] KingwoodPlatelet csbwpwojju0330-31-34 04:55:00* Test Item Value Reference Range Interpretation Comments Platelet Morphology Comment (test code = 95285-4) NORMAL [facility] KingwoodRBC qrsgmzlkhu7323-13-97 04:55:00* Test Item Value Reference Range Interpretation Comments Red Cell Morphology Comment (test code = 6742-1) NORMAL [facility] plasma amylase measurement (enzymatic activity/volume)2019-10-14 04:55:00* Test Item Value Reference Range Interpretation Comments Amylase Level (test code = 1798-8) 28 25-125 [facility] or plasma lipase measurement (enzymatic activity/volume)2019-10-14 04:55:00* Test Item Value Reference Range Interpretation Comments Lipase (test code = 3040-3) 15 8-78 [facility] KingwoodMRI MRCP [id number] 02:10:00 [facility] [address] [address] Patient Name: NEREIDA PAVON MR #: [id number] : 1995 Age/Sex: 24/F Req #: [id number] Adm Physician: KEVIN LOVE MD Ordered by: ALBERT RM MD Report #: [id number] Location: MED/SURG2 R [facility]Bed: [facility] Procedure: [id number] MRI/MRI M RISK CONSULTING TREASURY DIRECTOR WO Exam Date: Exam Time: REPORT STATUS: Signed EXAMINATION: MRI Abdomen withou t contrast/MRCP. TECHNIQUE: Axial T1 nonfat sat in and out of phase, axi al T2 fat sat, coronal T2 with and without fat sat, axial DWI and ADC MR image s of the abdomen were obtained. No gadolinium was administered. Heavily T 2-weighted MRCP images were also performed, including thick and thin slab MRCP ASSETT and 3-D reconstructions. CLINICAL HISTORY:Cholelithiasis, evaluate for choledocholithiasis. COMPARISON: CT abdomen and pelvis 10/13/2019 F INDINGS: LACK OF GADOLINIUM DECREASES SENSITIVITY FOR DETECTION OF INTRA-ABDO CARRIE PATHOLOGY. LOWER THORAX: Mild bilateral basal atelectatic changes.. LIVER: Normal hepatic size and contour.. No hepatic signal abnormality. No focal T2 hyperintense hepatic lesions. BILIARY: * Mild prominence of the central intrahepatic bile ducts.. * The common bile duct measures ap proximately 10 mm at the randall hepatis and 9 mm at the pancreatic head. The re is smooth luminal contour and tapering to the ampulla. No intraluminal rebekah ling defects, strictures or extrinsic compressions are identified (series 11, image 9 and series 8, image 22). * Hydropic gallbladder, which measures appro ximately 10.6 x 4.1 cm. * Multiple T2 hypointense filling defects measuring u p to 4 mm are noted in the gallbladder lumen, consistent with gallstones. N o wall thickening. No pericholecystic fluid. PANCREAS: No mass or ductal di latation. SPLEEN: No splenomegaly. ADRENALS: No nodules. KIDNEYS: No hydronephrosis, solid or cystic mass in the imaged portion of the kidneys. PERITONEUM / RETROPERITONEUM: No upper abdominal free fluid. GI TRACT : Visualized bowel shows no dilation or obstruction. LYMPH NODES: No upper abdominal lymphadenopathy. VESSELS: Normal flow voids are identified.. . . BONES AND SOFT TISSUES: No abnormal bone marrow signal. No soft t issue abnormalities. IMPRESSION: 1. Mild prominence of the central intrahepatic bile ducts and mild dilation of the common bile duct. Normal shakir nal contour and tapering to the ampulla. No intraluminal filling defects to angel ggest choledocholithiasis. 2. Hydropic gallbladder with cholelithiasis. No MR evidence of acute cholecystitis. Signed by: Dr. Pasha barnard M.D. on 10/14/2019 2:22 AM Dictated By: PASHA HENDERSON MD Electronical ly Signed By: PASHA HENDERSON MD on 10/14/19221 Transcribed By: MEREDITH on 221 COPY TO: ALBRET RM MD CT ABDOMEN/PELVIS WO 2019-10-13 20:09:00 [address] [address] Patient Name: NEREIDA PAVON MR #: [id number] : 1995 Age/Sex: 24/F Req #: [id number] [facility] Physician: Ordered by: KAE CANNON DO Report #: [id number] Location: ER Room/Bed: Procedure: [id number] CT/CT ABDOMEN /PELVIS WO Exam Date: 10/13/19 Exam Time: 1957 REPORT STATUS: Signed EXAM: CT Abdome n and Pelvis WITHOUT contrast INDICATION: Right upper quadrant abdominal hakan n. COMPARISON: None. TECHNIQUE: Abdomen and pelvis were scanned utilizing a multidetector helical scanner from the lung base to the pubic symphysis withou t administration of IV contrast. Absence of intravenous contrast decreases sen sitivity for detection of focal lesions and vascular pathology. Coronal and sa gittal reformations were obtained. Routine protocol was performed. IV CONTRAST: None ORAL CONTRAST: None COMPLICATIONS: None RADIATION DOSE: Total DLP: 698.25 mGy*cm Estimated effective d ose: (DLP x 0.015 x size factor) mSv CTDIvol has been reviewed. It is bel ow the limits set by the Radiation Protocol Committee (RPC). Dose modul ation, iterative reconstruction, and/or weight based adjustment of the mA/kV w as utilized to reduce the radiation dose to as low as reasonably achievable. FINDINGS: LINES and TUBES: None. LOWER THORAX: There is bibasila r atelectasis. The base of the heart is normal for image technique. HEPAT OBILIARY: No focal hepatic lesions. There is extrahepatic biliary ductal dilat ation measuring up to 9.5 mm. GALLBLADDER: There is marked distention of th e gallbladder with intraluminal layering radiodensity. No gallbladder wall thi ckening or pericholecystic fluid. SPLEEN: No splenomegaly. PANCREAS: No focal masses or ductal dilatation. ADRENALS: No adrenal nodules KIDNEYS/URETERS: No hydronephrosis. No cystic or solid mass lesions. No s tones. GI TRACT: No abnormal distention, wall thickening, or evidence of james wel obstruction. Appendix is normal. PELVIC ORGANS/BLADDER: There i s a left ovarian cyst which measures approximately 3.9 x 3[address] ructures are otherwise normal for image technique. LYMPH NODES: No lympha denopathy. VESSELS: Unremarkable. PERITONEUM / RETROPERITONEUM: No marvin e air or fluid. BONES: Unremarkable. SOFT TISSUES: Unremarkable. IMPRESSION: 1. Marked distention of the gallbladder with extrahepatic keira iary ductal dilatation measuring up to 9.5 mm. This constellation of findings may be due to extrahepatic biliary ductal obstruction. Recommend dedicated rig ht upper quadrant ultrasound for further evaluation of these findings. 2. L eft ovarian cyst which measures up to 3.9 cm. No additional follow-up recommen ded. Samanta D, Ken DL, Noemi RF. Management of asymptomatic ovarian a nd other adnexal cysts imaged at US: Society of Radiologists in Ultrasound Con sensus Conference Statement. Radiology 2010; [id number] Signed by: Qasim Campos MD on 10/13/2019 8:27 PM Dictated By: TONG CAMPOS MD Electron ically Signed By: TONG CAMPOS MD on 10/13/192026 Transcribed By: MEREDITH on 10/13/192026 COPY TO: KAE CANNON DO Urine color [id number] 18:33:00* Test Item Value Reference Range Interpretation Comments Urine Color (test code = 5778-6) MARCO YELLOW [facility] [id number] 18:33:00* Test Item Value Reference Range Interpretation Comments Urine Clarity (test code = 22658-1) SL CLOUDY CLEAR [facility] Urine by Test strip 2019-10-13 18:33:00* Test Item Value Reference Range Interpretation Comments Urine Specific [place] (test code = 5811-5) 1.020 1.010-1.02 5 [facility] pH measurement by automated test [id number] 18:33:00* Test Item Value Reference Range Interpretation Comments Urine pH (test code = 15101-0) 7 5-7 [facility]wood[facility] leukocyte esterase detection by [id number] 18:33:00* Test Item Value Reference Range Interpretation Comments Urine Leukocyte Esterase (test code = 5799-2) NEGATIVE NEGATIVE [facility]wood[facility] nitrite [id number] 18:33:00* Test Item Value Reference Range Interpretation Comments Urine Nitrite (test code = 05687-7) NEGATIVE NEGATIVE [facility]wood[facility] protein measurement by test strip (mass/volume)2019-10-13 18:33:00* Test Item Value Reference Range Interpretation Comments Urine Protein (test code = 5804-0) NEGATIVE NEGATIVE [facility]wood[facility] glucose [id number] 18:33:00* Test Item Value Reference Range Interpretation Comments Urine Glucose (UA) (test code = 2349-9) NEGATIVE NEGATIVE [facility]wood[facility] ketones detection by automated test [id number] 18:33:00* Test Item Value Reference Range Interpretation Comments Urine Ketones (test code = 49615-7) 1+ NEGATIVE [facility]wood[facility] urobilinogen measurement by test strip (mass/volume)2019-10-13 18:33:00* Test Item Value Reference Range Interpretation Comments Urine Urobilinogen (test code = 91556-5) 1 0.2-1 [facility] total bilirubin measurement (mass/volume)2019-10-13 18:33:00* Test Item Value Reference Range Interpretation Comments Urine Bilirubin (test code = 1978-6) LARGE NEGATIVE [facility]wood[facility] erythrocytes [id number] 18:33:00* Test Item Value Reference Range Interpretation Comments Urine Blood (test code = 88243-7) NEGATIVE NEGATIVE [facility]woodAutomated urine sediment leukocyte count by microscopy (number/high power field)2019-10-13 18:33:00* Test Item Value Reference Range Interpretation Comments Urine WBC (test code = 5821-4) NONE 0-5 [facility]woodErythrocytes detection in urine sediment by light [id number] 18:33:00* Test Item Value Reference Range Interpretation Comments Urine RBC (test code = 11020-1) NONE 0-5 [facility]woodBacteria detection in urine sediment by light [id number] 18:33:00* Test Item Value Reference Range Interpretation Comments Urine Bacteria (test code = 12280-1) MANY NONE [facility] KingwoodEpithelial cells detection in urine sediment by light [id number] 18:33:00* Test Item Value Reference Range Interpretation Comments Urine Epithelial Cells (test code = 76014-0) MODERATE NONE [facility] KingwoodTransitional cells detection in urine sediment by light [id number] 18:33:00* Test Item Value Reference Range Interpretation Comments Urine Transitional Epithelial Cells (test code = 8249-5) FEW NONE [facility]woodUrine human chorionic gonadotropin (hCG) [id number] 18:33:00* Test Item Value Reference Range Interpretation Comments Urine Test (test code = 2106-3) NEGATIVE NEGATIVE [facility] [place] ABDOMEN [id number] 23:00:00 Name: NEREIDA PAVON [facility] : 1995 Age/S: 24 / F [address] [facility] Unit #: [id number] Loc: [place] [address] Phys: Rei Mendenhall MD Acct: [id number] Di s Date: Status: REG ER PHONE #: Exam Date: 10/11/2019 FAX #: Reason: RUQ pain EXAMS: CPT CODE: [id number] [place] [address] EXAM: - US ABDOMEN LTD HISTORY: Pain COMPARISON: None available time of inte rpretation. TECHNIQUE: Grayscale B-mode and color Doppler sonograp hic images of the right upper quadrant were obtained. FINDIN GS: Small shadowing gallstones are present. No significant g allbladder wall thickening or pericholecystic fluid. The common bi le duct is 5 mm in diameter. Distal common bile duct is obscured by bowel gas. Hepatopedal flow is present in portal vein. No focal liver le bret is demonstrated. The visualized right kidney, IVC, aort a and pancreas show no significant abnormalities. Limited exam. IMPRESSION: Cholelithiasis. No evidence o f acute cholecystitis. at 2300 Reported and signed by: Rach Martinez MD CC: Rei Mendenhall MD hnologist: Loretta Jamison RDMS Trnscb Date/Ti me: 10/11/2019 (2299) [email or web address] Orig Print D/T: S: 2019 (2302) Probe: PAGE 1 Fani d Report BASIC METABOLIC [id number] 22:20:00 * Test Item Value Reference Range Interpretation Comments SODIUM (test code = NA) 138 mmol/L 136-145 N POTASSIUM (test code = K) 3.3 mmol/L 3.5-5.1 L CHLORIDE (test code = CL) 103 mmol/L 101-109 N CARBON DIOXIDE (test code = CO2) 26.8 mmol/L 21-32 N ANION GAP (test code = GAP) 12 mmol/L 10-20 N GLUCOSE (test code = GLU) 99 mg/dL 74-106 N BLOOD UREA NITROGEN (test code = BUN) 9 mg/dL 3-21 N GLOMERULAR FILTRATION RATE (test code = GFR) > 60 mL/min >=60 Estimated GFR by using Modified MDRD formula.Chronic kidney disease is defined as either kidney damageor GFR <60 mL/min/1.73 m2 for >3 months. CREATININE (test code = CREAT) 0.82 mg/dL 0.55-1.3 N BUN/CREATININE RATIO (test code = BUN/CREA) 11.0 10-20 N CALCIUM (test code = CA) 8.6 mg/dL 8.4-10.2 N HEPATIC FUNCTION [id number] 22:20:00* Test Item Value Reference Range Interpretation Comments TOTAL PROTEIN (test code = PROT) 7.3 g/dL 6.5-8.4 N ALBUMIN (test code = ALB) 3.2 g/dL 3.4-4.8 L GLOBULIN (test code = GLOB) 4.1 G/DL 1-10 N ALBUMIN/GLOBULIN RATIO (test code = A/G) 0.78 RATIO 0.75-1.50 N BILIRUBIN TOTAL (test code = BILT) 2.70 mg/dL 0.0-1.0 H BILIRUBIN DIRECT (test code = BILD) 2.00 mg/dL 0.0-0.30 H SGOT/AST (test code = AST) 63 U/L 6-32 H SGPT/ALT (test code = ALT) 118 U/L 12-78 H N ote: Change in REFERENCE RANGE due to new reagent method. ALKALINE PHOSPHATASE TOTAL (test code = ALKP) 100 U/L 38-126 N [id number] 22:20:00* Test Item Value Reference Range Interpretation Comments LIPASE (test code = LIP) 85 U/L 128-270 L DRUGS OF ABUSE SCREEN [id number] 22:14:00* Test Item Value Reference Range Interpretation Comments URN COCAINE (test code = COCAURN) NEGATIVE NEGATIVE URN CANNABINOIDS (test code = CANNABURN) NEGATIVE NEGATIVE URN AMPHETAMINE (test code = AMPHETURN) NEGATIVE NEGATIVE URN BARBITURATE (test code = BARBITURN) NEGATIVE NEGATIVE URN BENZODIAZEPINE (test code = BENZOURN) NEGATIVE NEGATIVE URN OPIATES (test code = OPIATURN) NEGATIVE NEGATIVE URN PHENCYCLIDINE (PCP) (test code = PHENCURN) NEGATIVE NEGATIV E CBC W/O [id number] 22:02:00* Test Item Value Reference Range Interpretation Comments WHITE BLOOD CELL (test code = WBC) 5.0 K/mm3 4.5-12.5 N RED BLOOD CELL (test code = RBC) 4.49 mill/mm3 3.7-5.2 N HEMOGLOBIN (test code = HGB) 11.8 gram/dL 11.5-15.5 N HEMATOCRIT (test code = HCT) 37.0 % 36.0-46.0 N MEAN CELL VOLUME (test code = MCV) 82.4 fL 80-98 N MEAN CELL HGB (test code = MCH) 26.3 picogram 27.0-33.0 L MEAN CELL HGB CONCETRATION (test code = MCHC) 31.9 gram/dL 33.0-36. 0 L RED CELL DISTRIBUTION WIDTH (test code = RDW) 13.4 % 11.6-16. 2 N RED CELL DISTRIBUTION WIDTH SD (test code = RDW-SD) 41.1 fL 37 .0-51.0 N PLATELET COUNT (test code = PLT) 243 K/mm3 150-450 N MEAN PLATELET VOLUME (test code = MPV) 9.7 fL 6.7-11.0 N URINALYSIS [id number] 21:17:00* Test Item Value Reference Range Interpretation Comments UA COLOR (test code = COLU) Dark [place] YELLOW UA APPEARANCE (test code = APPU) HAZY CLEAR A UA GLUCOSE DIPSTICK (test code = DGLUU) norm mg/dL NEGATIVE UA BILIRUBIN DIPSTICK (test code = BILU) 1 mg/dL NEGATIVE A UA KETONE DIPSTICK (test code = KETU) 15 (1+) mg/dL NEGATIVE A UA SPECIFIC GRAVITY (test code = SGU) 1.005 1.001-1.035 UA BLOOD DIPSTICK (test code = FERNANDO) neg Eduar/uL NEGATIVE UA PH DIPSTICK (test code = PAWEL) 7.0 5.0-8.0 UA PROTEIN DIPSTICK (test code = PROU) neg mg/dL Neg-15 UA UROBILINIOGEN DIPSTICK (test code = URO) 4 mg/dL (2+) mg/dL 0.0 -0.2 A UA NITRITE DIPSTICK (test code = LUCERO) NEGATIVE NEGATIVE UA LEUKOCYTE ESTERASE DIPSTICK (test code = LEUU) 25 Hali/uL (Tra ce) uL NEGATIVE A UA WBC (test code = WBCU) 0-5 per HPF 0-5 UA RBC (test code = RBCU) NONE SEEN per HPF 0-5 UA EPITHELIAL CELLS (test code = EPIU) Rare (0-1/hpf) per HPF Few UA BACTERIA (test code = BACU) TRACE per HPF NONE UA MUCUS (test code = MUCU) FEW per LPF NONE-FEW Urine Source? Clean CatchUR HCG [id number] 21:17:00* Test Item Value Reference Range Interpretation Comments UR HCG QUAL (test code = HCGQLU) NEGATIVE This HCGQL test is NOT applicable for MALE patients.Check with nurse about probable order error.If Tumor Marker Test needed, nurse should order test "HCGTU"(Test #550.58227) Urine Source? Clean CatchURINALYSIS [id number] 21:14:00* Test Item Value Reference Range Interpretation Comments UA COLOR (test code = COLU) [place] YELLOW UA APPEARANCE (test code = APPU) HAZY CLEAR A UA GLUCOSE DIPSTICK (test code = DGLUU) norm mg/dL NEGATIVE UA BILIRUBIN DIPSTICK (test code = BILU) 1 mg/dL NEGATIVE A UA KETONE DIPSTICK (test code = KETU) 15 (1+) mg/dL NEGATIVE A UA SPECIFIC GRAVITY (test code = SGU) 1.005 1.001-1.035 UA BLOOD DIPSTICK (test code = FERNANDO) neg Eduar/uL NEGATIVE UA PH DIPSTICK (test code = PAWEL) 7.0 5.0-8.0 UA PROTEIN DIPSTICK (test code = PROU) neg mg/dL Neg-15 UA UROBILINIOGEN DIPSTICK (test code = URO) 4 mg/dL (2+) mg/dL 0.0 -0.2 A UA NITRITE DIPSTICK (test code = LUCERO) NEGATIVE NEGATIVE UA LEUKOCYTE ESTERASE DIPSTICK (test code = LEUU) 25 Hali/uL (Tra ce) uL NEGATIVE A UA WBC (test code = WBCU) per HPF 0-5 UA RBC (test code = RBCU) per HPF 0-5 UA EPITHELIAL CELLS (test code = EPIU) per HPF Few UA BACTERIA (test code = BACU) per HPF NONE Urine Source? Clean CatchUR HCG [id number] 21:14:00* Test Item Value Reference Range Interpretation Comments UR HCG QUAL (test code = HCGQLU) NEGATIVE This HCGQL test is NOT applicable for MALE patients.Check with nurse about probable order error.If Tumor Marker Test needed, nurse should order test "HCGTU"(Test #550.98239) Urine Source? Clean CatchURINALYSIS [id number] 21:13:00* Test Item Value Reference Range Interpretation Comments UA COLOR (test code = COLU) [place] YELLOW UA APPEARANCE (test code = APPU) HAZY CLEAR A UA GLUCOSE DIPSTICK (test code = DGLUU) norm mg/dL NEGATIVE UA BILIRUBIN DIPSTICK (test code = BILU) 1 mg/dL NEGATIVE A UA KETONE DIPSTICK (test code = KETU) 15 (1+) mg/dL NEGATIVE A UA SPECIFIC GRAVITY (test code = SGU) 1.005 1.001-1.035 UA BLOOD DIPSTICK (test code = FERNANDO) neg Eduar/uL NEGATIVE UA PH DIPSTICK (test code = PAWEL) 7.0 5.0-8.0 UA PROTEIN DIPSTICK (test code = PROU) neg mg/dL Neg-15 UA UROBILINIOGEN DIPSTICK (test code = URO) 4 mg/dL (2+) mg/dL 0.0 -0.2 A UA NITRITE DIPSTICK (test code = LUCERO) NEGATIVE NEGATIVE UA LEUKOCYTE ESTERASE DIPSTICK (test code = LEUU) 25 Hali/uL (Tra ce) uL NEGATIVE A UA WBC (test code = WBCU) per HPF 0-5 UA RBC (test code = RBCU) per HPF 0-5 UA EPITHELIAL CELLS (test code = EPIU) per HPF Few UA BACTERIA (test code = BACU) per HPF NONE Urine Source? Clean CatchUR HCG [id number] 21:13:00* Test Item Value Reference Range Interpretation Comments UR HCG QUAL (test code = HCGQLU) Urine Source? Clean CatchU/S, ABDOMINAL, [id number] 04:49:00Abdomen limited area? Add comment if clarification is needed.->Gall BladderReason for exam:->upper abd painFINAL REPORT TECHNIQUE: Grayscale ultrasound of the right abdomen. INDICATION: Upper abd pain. COMPARISON: None. FINDINGS: MIDLINE VASCULATURE: The visualized inferior vena cava is patent. Portal vein is patent. The maximum visualized aortic diameter is 1.7 cm. LIVER: Smooth liver contour. No focal lesions. The main portal vein measures 0.8 cm. BILIARY:Gallbladder: No gallstones or sludge. No gallbladder wall thickening, pericholecystic fluid, or distention. Negative sonographic Thomas sign.Common bile duct measures 0.4 cm, within normal limits. No intrahepatic biliary ductal dilatation. PANCREAS: Incompletely visualized due to overlying bowel gas. PERITONEUM: No free fluid. RIGHT KIDNEY: Normal in size. No hydronephrosis. No sonographically evident solid mass lesion. IMPRESSION:Unremarkable ultrasound of the right upper abdomen. Signed: Marie Lopez Verified Date/Time: 01/04/2019 04:49:17 abdomen [id number] 04:49:00Interface, External Ris In - 01/04/2019 4:51 AM CDTFINAL REPORT TECHNIQUE: Grayscale ultrasound of the right abdomen. INDICATION: Upper abd pain. COMPARISON: None. FINDINGS: MIDLINE VASCULATURE: The visualized inferior vena cava is patent. Portal vein is patent. The maximum visualized aortic diameter is 1.7 cm. LIVER: Smooth liver contour. No focal lesions. The main portal vein measures 0.8 cm. BILIARY:Gallbladder: No gallstones or sludge. No gallbladder wall thickening, pericholecystic fluid, or distention. Negative sonographic Thomas sign.Common bile duct measures 0.4 cm, within normal limits. No intrahepa tic biliary ductal dilatation. PANCREAS: Incompletely visualized due to overlyin g bowel gas. PERITONEUM: No free fluid. RIGHT KIDNEY: Normal in size. No hydrone phrosis. No sonographically evident solid mass lesion. IMPRESSION:Unremarkable ultrasound of the right upper abdomen. Signed: Marie Lopez Verified Da te/Time: 01/04/2019 04:49:17 [facility] (Na, K+, Cl, CO2, Glu, Ca, BUN, Cr)2019-01-04 04:48:00* Test Item Value Reference Range Interpretation Comments Sodium (test code = 2951-2) 135 meq/L 136-145 L Potassium (test code = 2823-3) 3.6 meq/L 3.5-5.1 Chloride (test code = 2075-0) 103 meq/L 98-107 CO2 (test code = 8-9) 24 meq/L 22-29 BUN (test code = 3094-0) 16 mg/dL 7-21 Creatinine (test code = 2160-0) 0.70 mg/dL 0.57-1.25 Glucose (test code = 2345-7) 93 mg/dL 70-105 Calcium (test code = 76901-6) 9.2 mg/dL 8.4-10.2 EGFR (test code = 60272-1) 128 mL/min/1.73 sq m ESTIMATED GFR IS NOT ACCURATE CREATININE CLEARANCE IN PREDICTING GLOMERULAR FILTRATION RATE. ESTIMATED GFR IS NOT APPLICABLE FOR DIALYSIS PATIENTS. Lab Interpretation (test code = 83150-6) Abnormal [facility]Liver [id number] 04:48:00* Test Item Value Reference Range Interpretation Comments Protein, Total (test code = 2885-2) 7.5 6.0- 8.3 gm/dL Albumin (test code = 18767-3) 4.0 g/dL 3.5-5 Total Bilirubin (test code = 1974-2) 0.3 mg/dL 0.2-1.2 Bilirubin, Direct (test code = 1967-7) 0.2 mg/dL 0.1-0.5 Alkaline Phosphatase (test code = 6768-6) 61 U/L 40-150 AST (test code = 1920-8) 14 U/L 5-34 ALT (test code = 1742-6) 22 U/L 6-55 Lab Interpretation (test code = 81207-5) Normal [facility]2019-10-[facility] 04:48:00* Test Item Value Reference Range Interpretation Comments Lipase (test code = 3040-3) 11 U/L 8-78 Lab Interpretation (test code = 57900-1) Normal [facility]2019-10-09 04:48:00* Test Item Value Reference Range Interpretation Comments LIPASE (BEAKER) (test code = 749) 11 U/L 8-78 BASIC METABOLIC [id number] 04:48:00* Test Item Value Reference Range Interpretation Comments SODIUM (BEAKER) (test code = 381) 135 meq/L 136-145 L POTASSIUM (BEAKER) (test code = 379) 3.6 meq/L 3.5-5.1 CHLORIDE (BEAKER) (test code = 382) 103 meq/L 98-107 CO2 (BEAKER) (test code = 355) 24 meq/L 22-29 BLOOD UREA NITROGEN (BEAKER) (test code = 354) 16 mg/dL 7-21 CREATININE (BEAKER) (test code = 358) 0.70 mg/dL 0.57-1.25 GLUCOSE RANDOM (BEAKER) (test code = 652) 93 mg/dL 70-105 CALCIUM (BEAKER) (test code = 697) 9.2 mg/dL 8.4-10.2 EGFR (BEAKER) (test code = 1092) 128 mL/min/1.73 sq m ESTIMATED GFR IS NOT ACCURATE CREATININE CLEARANCE IN PREDICTING GLOMERULAR FILTRATION RATE. ESTIMATED GFR IS NOT APPLICABLE FOR DIALYSIS PATIENTS. HEPATIC FUNCTION [id number] 04:48:00* Test Item Value Reference Range Interpretation Comments TOTAL PROTEIN (BEAKER) (test code = 770) 7.5 gm/dL 6.0-8.3 ALBUMIN (BEAKER) (test code = 1145) 4.0 g/dL 3.5-5.0 BILIRUBIN TOTAL (BEAKER) (test code = 377) 0.3 mg/dL 0.2-1.2 BILIRUBIN DIRECT (BEAKER) (test code = 706) 0.2 mg/dL 0.1-0.5 ALKALINE PHOSPHATASE (BEAKER) (test code = 346) 61 U/L 40-150 AST (SGOT) (BEAKER) (test code = 353) 14 U/L 5-34 ALT (SGPT) (BEAKER) (test code = 347) 22 U/L 6-55 CBC with platelet count + automated [id number] 04:25:00* Test Item Value Reference Range Interpretation Comments WBC (test code = 6690-2) 7.4 3.5- 10.5 K/L RBC (test code = 789-8) 4.41 3.93- 5.22 M/L MCHC (test code = 786-4) 31.6 32.2- 35.5 GM/DL L Hematocrit (test code = 4544-3) 35.1 % 34.1-44.9 MCV (test code = 787-2) 79.6 fL 79.4-94.8 MCH (test code = 785-6) 25.2 pg 25.6-32.2 L RDW (test code = 788-0) 14.0 % 11.7-14.4 Platelets (test code = 777-3) 266 150- 450 K/CU MM MPV (test code = 01445-5) 9.8 fL 9.4-12.3 nRBC (test code = 413) 0 0- 0 /100 WBC % Neutros (test code = 429) 65 % % Lymphs (test code = 430) 26 % % Monos (test code = 431) 8 % % Eos (test code = 432) 0 % % Baso (test code = 437) 0 % # Neutros (test code = 670) 4.82 1.56- 6.13 K/L # Lymphs (test code = 414) 1.92 1.18- 3.74 K/L # Monos (test code = 415) 0.59 0.24- 0.36 K/L H # Eos (test code = 416) 0.03 0.04- 0.36 K/L L # Baso (test code = 417) 0.02 0.01- 0.08 K/L Immature Granulocytes-Relative (test code = 2801) 0 % 0-1 Lab Interpretation (test code = 20999-3) Abnormal [facility] W/PLT COUNT & AUTO [id number] 04:25:00* Test Item Value Reference Range Interpretation Comments WHITE BLOOD CELL COUNT (BEAKER) (test code = 775) 7.4 K/ L 3.5- 10.5 RED BLOOD CELL COUNT (BEAKER) (test code = 761) 4.41 M/ L 3.93-5 .22 HEMOGLOBIN (BEAKER) (test code = 410) 11.1 GM/DL 11.2-15.7 L HEMATOCRIT (BEAKER) (test code = 411) 35.1 % 34.1-44.9 MEAN CORPUSCULAR VOLUME (BEAKER) (test code = 753) 79.6 fL 79. 4-94.8 MEAN CORPUSCULAR HEMOGLOBIN (BEAKER) (test code = 751) 25.2 pg 25.6-32.2 L MEAN CORPUSCULAR HEMOGLOBIN CONC (BEAKER) (test code = 752) 31.6 GM/DL 32.2-35.5 L RED CELL DISTRIBUTION WIDTH (BEAKER) (test code = 412) 14.0 % 11.7-14.4 PLATELET COUNT (BEAKER) (test code = 756) 266 K/CU MM 150-450 MEAN PLATELET VOLUME (BEAKER) (test code = 754) 9.8 fL 9.4-12 .3 NUCLEATED RED BLOOD CELLS (BEAKER) (test code = 413) 0 /100 WBC 0 -0 NEUTROPHILS RELATIVE PERCENT (BEAKER) (test code = 429) 65 % LYMPHOCYTES RELATIVE PERCENT (BEAKER) (test code = 430) 26 % MONOCYTES RELATIVE PERCENT (BEAKER) (test code = 431) 8 % EOSINOPHILS RELATIVE PERCENT (BEAKER) (test code = 432) 0 % BASOPHILS RELATIVE PERCENT (BEAKER) (test code = 437) 0 % NEUTROPHILS ABSOLUTE COUNT (BEAKER) (test code = 670) 4.82 K/ L 1.56-6.13 LYMPHOCYTES ABSOLUTE COUNT (BEAKER) (test code = 414) 1.92 K/ L 1.18-3.74 MONOCYTES ABSOLUTE COUNT (BEAKER) (test code = 415) 0.59 K/ L 0. 24-0.36 H EOSINOPHILS ABSOLUTE COUNT (BEAKER) (test code = 416) 0.03 K/ L 0.04-0.36 L BASOPHILS ABSOLUTE COUNT (BEAKER) (test code = 417) 0.02 K/ L 0. 01-0.08 IMMATURE GRANULOCYTES-RELATIVE PERCENT (BEAKER) (test code = 2801) 0 % 0-1 PIV [id number] 04:12:31Sidney Baker MD 01/04/2019 4:15 AMPIV InsertionDate/Time: 01/04/2019 4:14 AMPerformed by: Sidney Baker [facility] CENTERuthorized by: Sidney Baker MD Preparation: Patient was prepped and draped in the usual sterile fashion.Indication: difficult access.Location: left external jugular. Needle gauge: 20Number of attempts: 1Post-procedure: dressing appliedPost-procedure CMS: normalPatient tolerance: Patient tolerated the procedure well with no immediate complications [facility] 12 [id number] 10:53:58Interface, External Ris In - 12/15/2018 10:54 AM CDTVentricular Rate 84 BPMAtrial Rate 84 BPMP-R Interval 180 msQRS Duration 104 msQ-T Interval 372 msQTC Calculation(Bazefrannie) 439 msP [place] 53 degreesR [place] 32 degreesT [place] 43 degreesNormal sinus rhythm with sinus arrhythmiaNormal ECGNo previous ECGs availableConfirmed by MD Kennedy Roberto ([id number]) on 12/15/2018 10:53:55 [facility] [place]2018-12-14 23:38:00* Test Item Value Reference Range Interpretation Comments Troponin I (test code = 59146-3) <0.01 0-0.03 PRAFUL (test code = PRAFUL) Troponin I (TnI) levels must be interpreted in the context of the presenting symptoms and the clinical findings. Elevated TnI levels indicate myocardial damage, but are not specific for ischemic heart disease. Elevated TnI levels are seen in patients with other cardiac conditions (including myocarditis and congestive heart failure), and slight TnI elevations occur in patients with other conditions, including sepsis, renal failure, acidosis, acute neurological disease, and persistent tachyarrhythmia. Lab Interpretation (test code = 51664-2) Normal [facility]ITALNIN [id number] 23:38:00* Test Item Value Reference Range Interpretation Comments TROPONIN I (BEAKER) (test code = 397) < ng/mL 0.00-0.03 Troponin I (TnI) levels must be interpreted in the context of the presenting sym ptoms and the clinical findings. Elevated TnI levels indicate myocardial damage, but are not specific for ischemic heart disease. Elevated TnI levels are seen i n patients with other cardiac conditions (including myocarditis and congestive h eart failure), and slight TnI elevations occur in patients with other conditions , including sepsis, renal failure, acidosis, acute neurological disease, and per sistent tachyarrhythmia.Creatine Kinase (CK)2018-12-14 23:32:00* Test Item Value Reference Range Interpretation Comments Total CK (test code = 2157-6) 142 U/L 29-200 Lab Interpretation (test code = 52513-6) Normal [facility] HospitalCREATINE KINASE (CK)2018-12-14 23:32:00* Test Item Value Reference Range Interpretation Comments CREATINE KINASE TOTAL (BEAKER) (test code = 380) 142 U/L 29-20 0 [id number] 23:32:00* Test Item Value Reference Range Interpretation Comments LIPASE (BEAKER) (test code = 749) 10 U/L 8-78 BASIC METABOLIC [id number] 23:32:00* Test Item Value Reference Range Interpretation Comments SODIUM (BEAKER) (test code = 381) 135 meq/L 136-145 L POTASSIUM (BEAKER) (test code = 379) 3.6 meq/L 3.5-5.1 CHLORIDE (BEAKER) (test code = 382) 102 meq/L 98-107 CO2 (BEAKER) (test code = 355) 23 meq/L 22-29 BLOOD UREA NITROGEN (BEAKER) (test code = 354) 14 mg/dL 7-21 CREATININE (BEAKER) (test code = 358) 0.74 mg/dL 0.57-1.25 GLUCOSE RANDOM (BEAKER) (test code = 652) 92 mg/dL 70-105 CALCIUM (BEAKER) (test code = 697) 9.1 mg/dL 8.4-10.2 EGFR (BEAKER) (test code = 1092) 120 mL/min/1.73 sq m ESTIMATED GFR IS NOT ACCURATE CREATININE CLEARANCE IN PREDICTING GLOMERULAR FILTRATION RATE. ESTIMATED GFR IS NOT APPLICABLE FOR DIALYSIS PATIENTS. HEPATIC FUNCTION [id number] 23:32:00* Test Item Value Reference Range Interpretation Comments TOTAL PROTEIN (BEAKER) (test code = 770) 7.9 gm/dL 6.0-8.3 ALBUMIN (BEAKER) (test code = 1145) 4.0 g/dL 3.5-5.0 BILIRUBIN TOTAL (BEAKER) (test code = 377) 0.4 mg/dL 0.2-1.2 BILIRUBIN DIRECT (BEAKER) (test code = 706) 0.2 mg/dL 0.1-0.5 ALKALINE PHOSPHATASE (BEAKER) (test code = 346) 63 U/L 40-150 AST (SGOT) (BEAKER) (test code = 353) 15 U/L 5-34 ALT (SGPT) (BEAKER) (test code = 347) 22 U/L 6-55 RAD, CHEST, 2 [id number] 22:43:00Reason for exam:->CHEST PAINFINAL REPORT INDICATION: CHEST PAIN COMPARISON: July 28, 2003 TECHNIQUE: Chest radiograph, two views, PA and lateral. FINDINGS / IMPRESSION:Lung volumes are normal and lungs clear.Heart shadow normal in size.No pneumothorax or pleural effusion demonstrated.Osseous structures unremarkable. Signed: Scar Garza Verified Date/Time: 12/14/2018 22:43:12 Reading Location: [address] Consult Reading Room chest 2 [id number] 22:43:00Interface, External Ris In - 12/14/2018 10:45 PM CDTFINAL REPORT INDICATION: CHEST PAIN COMPARISON: July 28, 2003 TECHNIQUE: Chest radiograph, two views, PA and lateral. FINDINGS / IMPRESSION:Lung volumes are normal and lungs clear.Heart shadow normal in size.No pneumothorax or pleural effusion dem onstrated.Osseous structures unremarkable. Signed: Scar Garza Marla ified Date/Time: 12/14/2018 22:43:12 Reading Location: [address] Consult Adrianne ding Room [facility], [id number] 22:00:00 * Test Item Value Reference Range Interpretation Comments Preg Test, Ur (test code = 2112-1) Negative [facility], [id number] 22:00:00* Test Item Value Reference Range Interpretation Comments TEST URINE (BEAKER) (test code = 583) Negative CBC W/PLT COUNT & AUTO [id number] 21:54:00* Test Item Value Reference Range Interpretation Comments WHITE BLOOD CELL COUNT (BEAKER) (test code = 775) 8.0 K/ L 3.5- 10.5 RED BLOOD CELL COUNT (BEAKER) (test code = 761) 4.78 M/ L 3.93-5 .22 HEMOGLOBIN (BEAKER) (test code = 410) 12.1 GM/DL 11.2-15.7 HEMATOCRIT (BEAKER) (test code = 411) 37.9 % 34.1-44.9 MEAN CORPUSCULAR VOLUME (BEAKER) (test code = 753) 79.3 fL 79. 4-94.8 L MEAN CORPUSCULAR HEMOGLOBIN (BEAKER) (test code = 751) 25.3 pg 25.6-32.2 L MEAN CORPUSCULAR HEMOGLOBIN CONC (BEAKER) (test code = 752) 31.9 GM/DL 32.2-35.5 L RED CELL DISTRIBUTION WIDTH (BEAKER) (test code = 412) 13.7 % 11.7-14.4 PLATELET COUNT (BEAKER) (test code = 756) 288 K/CU MM 150-450 MEAN PLATELET VOLUME (BEAKER) (test code = 754) 9.6 fL 9.4-12 .3 NUCLEATED RED BLOOD CELLS (BEAKER) (test code = 413) 0 /100 WBC 0 -0 NEUTROPHILS RELATIVE PERCENT (BEAKER) (test code = 429) 74 % LYMPHOCYTES RELATIVE PERCENT (BEAKER) (test code = 430) 18 % MONOCYTES RELATIVE PERCENT (BEAKER) (test code = 431) 7 % EOSINOPHILS RELATIVE PERCENT (BEAKER) (test code = 432) 0 % BASOPHILS RELATIVE PERCENT (BEAKER) (test code = 437) 0 % NEUTROPHILS ABSOLUTE COUNT (BEAKER) (test code = 670) 5.90 K/ L 1.56-6.13 LYMPHOCYTES ABSOLUTE COUNT (BEAKER) (test code = 414) 1.46 K/ L 1.18-3.74 MONOCYTES ABSOLUTE COUNT (BEAKER) (test code = 415) 0.54 K/ L 0. 24-0.36 H EOSINOPHILS ABSOLUTE COUNT (BEAKER) (test code = 416) 0.02 K/ L 0.04-0.36 L BASOPHILS ABSOLUTE COUNT (BEAKER) (test code = 417) 0.02 K/ L 0. 01-0.08 IMMATURE GRANULOCYTES-RELATIVE PERCENT (BEAKER) (test code = 2801) 1 % 0-1 ECG/EKG [id number] 20:55:42Edelmira Mims MD 12/16/2018 3:16 PMECG/EKG InterpretationDate/Time: 12/14/2018 8:25 PMPerformed by: Edelmira Mims MDAuthorized by: Edelmira Mims MD The ECG was interpreted by ED physician. This ECG was compared with previous ECG(s).The ECG is interpreted as sinus rhythm. Rate is normal rate. Heart rate is 84 BPM.Conduction: conduction normal. ST segments normal. T waves normal. [place] is normal. Other findings: no other findings. Clinical Impression: normal ECGECG reviewed and does not meet STEMI criteria. Patient tolerance: Patient tolerated the procedure well with no immediate complications [facility]
--- OUTSIDE RECORDS SUMMARY | 2019-10-27 12:47 | XMS REPORT | Clinical Summary ---
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 (7) per tablet Active albuterol (ACCUNEB) 0.63 Take 1 ampule 0 mg/3 mL nebulizer by solution nebulization every 6 (six) hours as needed for Wheezing. Active fluticasone Inhale 1 puff 0 propion-salmeterol by mouth via (ADVAIR) 100-50 mcg/dose inhaler every diskus inhaler 12 (twelve) hours. 12/14/2019 Active ranitidine (ZANTAC) 150 Take 1 30 capsule 0 MG capsule capsule (150 9 mg total) by mouth daily. 01/04/2020 Active pantoprazole (PROTONIX) Take 1 tablet 20 tablet 0 20 MG tablet (20 mg total) 9 by mouth daily. 01/04/2019 Discontinued ranitidine (ZANTAC) 150 Take 150 mg 0 MG capsule by mouth 2 (two) times daily. Active Problems Not on file Encounters Care Team Description Date Type Specialty Sidney Hua MD Epigastric pain (Primary Dx); History of gastroesophageal reflux (GERD) 01/04/2019 Emergency Emergency Medicine 01/04/2019 Travel Edelmira Adair MD Acute chest pain (Primary Dx); Gastroesophageal reflux disease, esophagitis presence not specified; Irregular menses; PCOS (polycystic ovarian syndrome) 12/14/2018 Emergency Emergency Medicine 12/14/2018 Orders Only General Internal Me dicine 12/14/2018 Travel after 10/12/2018 Family History Medical History Relation Name Comments Diabetes Father Diabetes Maternal Aunt Cancer Maternal Grandmother Diabetes Maternal Grandmother Relation Name Status Comments Father Maternal Aunt Maternal Grandmother Social History Date Tobacco Use Types Packs/Day Years Used Never Smoker Smokeless Tobacco: Never Used Alcohol Use Drinks/Week oz/Week Comments No Alcohol Habits Answer Date Recorded How often do you have a drink containing alcohol? Never 12/14/2018 How many drinks containing alcohol do you have on No t asked a typical day when you are drinking? How often do you have six or more drinks on one Not asked occasion? Sex Assigned at Date Recorded Not on file Industry Job Start Date Occupation Not on file Not on file Not on file Travel End Travel History Travel Start No recent travel history available. Last Filed Vital Signs Time Taken Vital Sign Reading 01/04/2019 5:47 AM CDT Blood Pressure 131/77 01/04/2019 5:47 AM CDT Pulse 81 01/04/2019 2:55 AM CDT Temperature 37.3 C (99.1 F) 01/04/2019 5:47 AM CDT Respiratory Rate 18 01/04/2019 2:55 AM CDT Oxygen Saturation 98% - Inhaled Oxygen - Concentration 01/04/2019 2:55 AM CDT Weight 120.2 kg (265 lb) 01/04/2019 2:55 AM CDT Height 167.6 cm (5' 6") 01/04/2019 2:55 AM CDT Body Mass Index 42.77 Plan of Treatment Not on file Procedures Comments Procedure Name Priority Date/Time Associated Diag nosis US ABDOMEN LIMITED STAT 01/04/2019 4:[address] NEEDLE IN VEIN Routine 01/04/2019 4:12 AM CDT CBC W/PLT COUNT & AUTO STAT 01/04/2019 DIFFERENTIAL 4:12 AM CDT HEPATIC FUNCTION PANEL STAT 01/04/2019 4:12 AM CDT LIPASE STAT 01/04/2019 4:12 AM CDT CBC W/PLT COUNT & AUTO STAT 01/04/2019 DIFFERENTIAL 4:12 AM CDT BASIC METABOLIC PANEL (7) STAT 01/04/2019 4:12 AM CDT RHYTHM STRIP - SCAN 12/22/2018 5:40 PM CDT HEPATIC FUNCTION PANEL STAT 12/14/2018 10:42 PM CDT LIPASE STAT 12/14/2018 10:42 PM CDT TROPONIN I STAT 12/14/2018 10:42 PM CDT CREATINE KINASE (CK) STAT 12/14/2018 10:42 PM CDT BASIC METABOLIC PANEL (7) STAT 12/14/2018 10:42 PM CDT XR CHEST 2 VIEWS STAT 12/14/2018 10:30 PM CDT CBC W/PLT COUNT & AUTO STAT 12/14/2018 DIFFERENTIAL 9:45 PM CDT SCREEN, URINE STAT 12/14/2018 9:45 PM CDT CBC W/PLT COUNT & AUTO STAT 12/14/2018 DIFFERENTIAL 9:45 PM CDT ED ECG INTERPRETATION Routine 12/14/2018 8:55 PM CDT ECG 12-LEAD STAT 12/14/2018 8:25 PM CDT after 10/12/2018 Results * US abdomen limited (01/04/2019 4:25 AM CDT) Specimen Narrative Performed At FINAL REPORT [employer] TECHNIQUE: Grayscale ultrasound of the right abdomen. INDICATION: Upper abd pain. COMPARISON: None. FINDINGS: MIDLINE VASCULATURE: The visualized inf erior vena cava is patent. Portal vein is patent. The maximum visu alized aortic diameter is 1.7 cm. LIVER: Smooth liver contour. No focal l esions. The main portal vein measures 0.8 cm. BILIARY: Gallbladder: No gallstones or sludge. N o gallbladder wall thickening, pericholecystic fluid, or distention. N egative sonographic Thomas sign. Common bile duct measures 0.4 cm, withi n normal limits. No intrahepatic biliary ductal dilatation. PANCREAS: Incompletely visualized due t o overlying bowel gas. PERITONEUM: No free fluid. RIGHT KIDNEY: Normal in size. No hydron ephrosis. No sonographically evident solid mass lesion. IMPRESSION: Unremarkable ultrasound of the right up per abdomen. Signed: Marie Lopez MD Report Verified Date/Time: 9 04:49:17 Procedure Note Interface, External Ris In - 01/04/2019 4:51 AM CDT FINAL REPORT TECHNIQUE: Grayscale ultrasound of the right abdomen. INDICATION: Upper abd pain. COMPARISON: None. FINDINGS: MIDLINE VASCULATURE: The visualized inferior vena cava is patent. Portal vein is patent. The maximum visualized aortic diameter is 1.7 cm. LIVER: Smooth liver contour. No focal lesions. The main portal vein measures 0.8 cm. BILIARY: Gallbladder: No gallstones or sludge. No gallbladder wall thickening, pericholecystic fluid, or distention. Negative sonographic Thomas sign. Common bile duct measures 0.4 cm, within normal limits. No intrahepatic biliary ductal dilatation. PANCREAS: Incompletely visualized due to overlying bowel gas. PERITONEUM: No free fluid. RIGHT KIDNEY: Normal in size. No hydronephrosis. No sonographically evident solid mass lesion. IMPRESSION: Unremarkable ultrasound of the right upper abdomen. Signed: Marie Lopez MD Report Verified Date/Time: 01/04/2019 04:49:17 Performing Organization Address City/State/Zipcode Ph one Number GE RIS * PIV Insertion (01/04/2019 4:12 AM CDT) Narrative Performed [place] [address]:15 AM PIV Insertion Date/Time: 01/04/2019 4:14 AM Performed by: Sidney Hua MD Authorized by: Sidney Hua M D Preparation: Patient was prepped and dr bush in the usual sterile fashion. Indication: difficult access. Location: left external jugular. Needle gauge: 20 Number of attempts: 1 Post-procedure: dressing applied Post-procedure CMS: normal Patient tolerance: Patient tolerated th e procedure well with no immediate complications * CBC with platelet count + automated diff (01/04/2019 4:12 AM CDT) Only the most recent of 2 results within the time period is included. WBC 7.4 3.5 - 10.5 K/L [facility] RBC 4.41 3.93 - 5.22 M/L [facility] Hemoglobin 11.1 (L) 11.2 - 15.7 GM/DL [facility] Hematocrit 35.1 34.1 - 44.9 % [facility] MCV 79.6 79.4 - 94.8 fL [facility] MCH 25.2 (L) 25.6 - 32.2 pg [facility] MCHC 31.6 (L) 32.2 - 35.5 GM/DL [facility] RDW 14.0 11.7 - 14.4 % [facility] Platelets 266 150 - 450 K/CU MM [facility] MPV 9.8 9.4 - 12.3 fL [facility] nRBC 0 0 - 0 /100 WBC [facility] % Neutros 65 % [facility] % Lymphs 26 % [facility] % Monos 8 % [facility] % Eos 0 % [facility] % Baso 0 % [facility] # Neutros 4.82 1.56 - 6.13 K/L [facility] # Lymphs 1.92 1.18 - 3.74 K/L [facility] # Monos 0.59 (H) 0.24 - 0.36 K/L [facility] # Eos 0.03 (L) 0.04 - 0.36 K/L [facility] # Baso 0.02 0.01 - 0.08 K/L [facility] Immature 0 0 - 1 % [facility] Granulocytes-[facility] Specimen Blood Performing Organization Address City/[facility] one Number [place] [phone] [facility] * Lipase (01/04/2019 4:12 AM CDT) Only the most recent of 2 results within the time period is included. Lipase 11 8 - 78 U/L [facility] Specimen Blood Performing Organization Address [facility] one Number [place] [phone] [facility] * Liver Panel (01/04/2019 4:12 AM CDT) Only the most recent of 2 results within the time period is included. Protein, Total 7.5 6.0 - 8.3 gm/dL [facility] Albumin 4.0 3.5 - 5.0 g/dL [facility] Total Bilirubin 0.3 0.2 - 1.2 mg/dL [facility] Bilirubin, Direct 0.2 0.1 - 0.5 mg/dL [facility] Alkaline Phosphatase 61 40 - 150 U/L [facility] AST 14 5 - 34 U/L [facility] ALT 22 6 - 55 U/L [facility] Specimen Blood Performing Organization Address [facility] one Number [place] [phone] [facility] * Basic metabolic panel (Na, K+, Cl, CO2, Glu, Ca, BUN, Cr) (01/04/2019 4:12 AM CDT) Only the most recent of 2 results within the time period is included. Sodium 135 (L) 136 - 145 meq/L [facility] Potassium 3.6 3.5 - 5.1 meq/L [facility] Chloride 103 98 - 107 meq/L [facility] CO2 24 22 - 29 meq/L [facility] BUN 16 7 - 21 mg/dL [facility] Creatinine 0.70 0.57 - 1.25 mg/dL [facility] Glucose 93 70 - 105 mg/dL [facility] Calcium 9.2 8.4 - 10.2 mg/dL [facility] EGFR 128Comment: ESTIMATED GFR IS mL/min/1.73 sq m [facility] NOT ACCURATE CREATININE [facility] CLEARANCE IN PREDICTING GLOMERULAR FILTRATION RATE. ESTIMATED GFR IS NOT APPLICABLE FOR DIALYSIS PATIENTS. Specimen Blood Performing Organization Address City/State/Zipcode Ph one Number [place] [address] [facility] * RHYTHM STRIP - SCAN (12/22/2018 5:40 PM CDT) Narrative Performed At This result has an attachment that is n ot available. * Troponin I (not available at [facility] and [place]) (12/14/2018 10:42 PM CDT) Troponin I <0.01 0.00 - 0.03 ng/mL [facility] Specimen Blood Narrative Performed At Troponin I (TnI) levels must be interpreted in the co ntext of the presenting [facility] symptoms and the clinical findings. Elevated TnI leve ls indicate myocardial [facility] damage, but are not specific for ischem ic heart disease. Elevated TnI levels are seen in patients with other cardiac con ditions (including myocarditis and congestive heart failure), and slight T nI elevations occur in patients with other conditions, including sepsis, jeane al failure, acidosis, acute neurological disease, and persistent tachyarrhythmia . Performing Organization Address City/[facility] Ph one Number [facility] [address], [place] [address] [facility] * Creatine Kinase (CK) (12/14/2018 10:42 PM CDT) Total CK 142 29 - 200 U/L [facility] Specimen Blood Performing Organization Address [facility] Ph one Number [facility] [address] [place], [place] [address] [facility] * XR chest 2 views (12/14/2018 10:30 PM CDT) Specimen Narrative Performed At FINAL REPORT RIS INDICATION: CHEST PAIN COMPARISON: July 28, 2003 TECHNIQUE: Chest radiograph, two views, PA and lat eral. FINDINGS / IMPRESSION: Lung volumes are normal and lungs clear . Heart shadow normal in size. No pneumothorax or pleural effusion dem onstrated. Osseous structures unremarkable. Signed: Koffi Diehl MD Report Verified Date/Time: 22:43:12 Reading Location: [facility] C013 Consult Reading Room Procedure Note Interface, External Ris In - 12/14/2018 10:45 PM CDT FINAL REPORT INDICATION: CHEST PAIN COMPARISON: July 28, 2003 TECHNIQUE: Chest radiograph, two views, PA and lateral. FINDINGS / IMPRESSION: Lung volumes are normal and lungs clear. Heart shadow normal in size. No pneumothorax or pleural effusion demonstrated. Osseous structures unremarkable. Signed: Koffi Diehl MD Report Verified Date/Time: 12/14/2018 22:43:12 Reading Location: [facility] [id number] Consult Reading Room Performing Organization Address [facility] one Number RIS * Screen, urine (12/14/2018 9:45 PM CDT) Preg Test, Ur Negative [facility] Specimen Urine Performing Organization Address [facility] Ph one Number [facility] [address] [place], [place] [address] MEDICAL CENTER * ECG/EKG Interpretation (12/14/2018 8:55 PM CDT) Narrative Performed At Edelmira Adair MD 0193:16 PM ECG/EKG Interpretation Date/Time: 12/14/2018 8:25 PM Performed by: Edelmira Adair MD Authorized by: Edelmira Adair MD The ECG was interpreted by ED physician . This ECG was compared with previous ECG(s).The ECG is interpreted as sinus rhythm. Rate is normal rate. Heart rate is 84 BPM. Conduction: conduction normal. ST segme nts normal. T waves normal. [place] is normal. Other findings: no other findings. Clin ical Impression: normal ECGECG reviewed and does not meet STEMI criter ia. Patient tolerance: Patient tolerated the procedure well with no im mediate complications * ECG 12 lead (12/14/2018 8:25 PM CDT) Specimen Narrative Performed At Ventricular Rate 84 BPM GE MUSE Atrial Rate 84 BPM P-R Interval 180 ms QRS Duration 104 ms Q-T Interval 372 ms QTC Calculation(Bazett) 439 ms P [place] 53 degrees R [place] 32 degrees T [place] 43 degrees Normal sinus rhythm with sinus arrhythm ia Normal ECG No previous ECGs available Confirmed by MD Kennedy Roberto ([id number]) on 12/15/2018 10:53:55 AM Procedure Note Interface, External Ris In - 12/15/2018 10:54 AM CDT Ventricular Rate 84 BPM Atrial Rate 84 BPM P-R Interval 180 ms QRS Duration 104 ms Q-T Interval 372 ms QTC Calculation(Bazett) 439 ms P [place] 53 degrees R [place] 32 degrees T [place] 43 degrees Normal sinus rhythm with sinus arrhythmia Normal ECG No previous ECGs available Confirmed by MD Kennedy Roberto ([id number]) on 12/15/2018 10:53:55 AM Performing Organization Address City/State/Zipcode Ph one Number GE MUSE after 10/12/2018 Insurance Payer Benefit Subscriber ID Type Phone Address Plan / Group [facility] xxxxxxxxxxxx HMO/POS [phone] [facility] CHOICE EXCHANGE [phone]
--- OUTSIDE RECORDS SUMMARY | 2019-10-27 12:55 | XMS REPORT | Clinical Summary ---
Author Author GARY [facility] Address Unknown Phone Unavailable Care Team Providers [employer] Name Role Phone Loretta Marx MD PCP [...] CDT) Specimen Narrative Performed At FINAL REPORT [employer] TECHNIQUE: Grayscale ultrasound of the right abdomen. [...] included. WBC 7.4 3.5 - 10.5 K/L [facility] RBC 4.41 3.93 - 5.22 M/L [facility] Hemoglobin 11.1 (L) 11.2 - 15.7 GM/DL [facility] Hematocrit 35.1 34.1 - 44.9 % [facility] MCV 79.6 79.4 - 94.8 fL [facility] MCH 25.2 (L) 25.6 - 32.2 pg [facility] MCHC 31.6 (L) 32.2 - 35.5 GM/DL [facility] RDW 14.0 11.7 - 14.4 % [facility] Platelets 266 150 - 450 K/CU MM [facility] MPV 9.8 9.4 - 12.3 fL [facility] nRBC 0 0 - 0 /100 WBC [facility] % Neutros 65 % [facility] % Lymphs 26 % [facility] % Monos 8 % [facility] % Eos 0 % [facility] % Baso 0 % [facility] # Neutros 4.82 1.56 - 6.13 K/L [facility] # Lymphs 1.92 1.18 - 3.74 K/L [facility] # Monos 0.59 (H) 0.24 - 0.36 K/L [facility] # Eos 0.03 (L) 0.04 - 0.36 K/L [facility] # Baso 0.02 0.01 - 0.08 K/L [facility] Immature 0 0 - 1 % [facility] Granulocytes-[facility] Specimen Blood Performing Organization Address City/[facility] one Number [place] [phone] [facility] * Lipase (01/04/2019 4:12 AM CDT) Only the most recent of 2 results within the time period is included. Lipase 11 8 - 78 U/L [facility] Specimen Blood Performing Organization Address [facility] one Number [place] [phone] [facility] * Liver Panel (01/04/2019 4:12 AM CDT) Only the most recent of 2 results within the time period is included. Protein, Total 7.5 6.0 - 8.3 gm/dL [facility] Albumin 4.0 3.5 - 5.0 g/dL [facility] Total Bilirubin 0.3 0.2 - 1.2 mg/dL [facility] Bilirubin, Direct 0.2 0.1 - 0.5 mg/dL [facility] Alkaline Phosphatase 61 40 - 150 U/L [facility] AST 14 5 - 34 U/L [facility] ALT 22 6 - 55 U/L [facility] Specimen Blood Performing Organization Address [facility] one Number [place] [phone] [facility] * Basic metabolic panel (Na, K+, Cl, CO2, Glu, Ca, BUN, Cr) (01/04/2019 4:12 AM CDT) Only the most recent of 2 results within the time period is included. Sodium 135 (L) 136 - 145 meq/L [facility] Potassium 3.6 3.5 - 5.1 meq/L [facility] Chloride 103 98 - 107 meq/L [facility] CO2 24 22 - 29 meq/L [facility] BUN 16 7 - 21 mg/dL [facility] Creatinine 0.70 0.57 - 1.25 mg/dL [facility] Glucose 93 70 - 105 mg/dL [facility] Calcium 9.2 8.4 - 10.2 mg/dL [facility] EGFR 128Comment: ESTIMATED GFR IS mL/min/1.73 sq m [facility] NOT ACCURATE CREATININE [facility] CLEARANCE IN PREDICTING GLOMERULAR FILTRATION RATE. ESTIMATED GFR IS NOT APPLICABLE FOR DIALYSIS PATIENTS. Specimen Blood Performing Organization Address City/State/Zipcode Ph one Number [place] [id number] [facility] * RHYTHM STRIP - SCAN (12/22/2018 5:40 PM CDT) Narrative Performed At This result has an attachment that is n ot available. * Troponin I (not available at [facility]) (12/14/2018 10:42 PM CDT) Troponin I <0.01 0.00 - 0.03 ng/mL [facility] Specimen Blood Narrative Performed At Troponin I (TnI) levels must be interpreted in the co ntext of the presenting [facility] symptoms and the clinical findings. Elevated TnI leve ls indicate myocardial [facility] damage, but are not specific for ischem ic heart disease. Elevated TnI levels are seen in patients with other cardiac con ditions (including myocarditis and congestive heart failure), and slight T nI elevations occur in patients with other conditions, including sepsis, jeane al failure, acidosis, acute neurological disease, and persistent tachyarrhythmia . Performing Organization Address City/[facility] Ph one Number [facility] [address] [place], [place] [address] [facility] * Creatine Kinase (CK) (12/14/2018 10:42 PM CDT) Total CK 142 29 - 200 U/L [facility] Specimen Blood Performing Organization Address [facility] [place] one Number [facility] [address] [place], [place] [address] [facility] * XR chest 2 views (12/14/2018 10:30 [...] MD Report Verified Date/Time: 22:43:12 Reading Location: [facility] C013 Consult Reading Room Procedure Note [...] Report Verified Date/Time: 12/14/2018 22:43:12 Reading Location: [facility] [id number] Consult Reading Room Performing Organization Address [facility] one Number RIS * Screen, urine (12/14/2018 9:45 PM CDT) Preg Test, Ur Negative [facility] Specimen Urine Performing Organization Address [facility] Ph one Number [facility] [address] [place], [place] [address] [facility] * ECG/EKG Interpretation [...] ST segme nts normal. T waves normal. [place] is normal. Other findings: no other findings. [...] 372 ms QTC Calculation(Bazett) 439 ms P [place] 53 degrees R [place] 32 degrees T [place] 43 degrees Normal sinus rhythm with sinus arrhythm ia Normal ECG No previous ECGs available Confirmed by MD Kennedy Roberto ([id number]) on 12/15/2018 10:53:55 AM Procedure Note Interface, External Ris In - 12/15/2018 10:54 AM CDT Ventricular Rate 84 BPM Atrial Rate 84 BPM P-R Interval 180 ms QRS Duration 104 ms Q-T Interval 372 ms QTC Calculation(Bazett) 439 ms P [place] 53 degrees R [place] 32 degrees T [place] 43 degrees Normal sinus rhythm with sinus arrhythmia Normal ECG No previous ECGs available Confirmed by MD Kennedy Roberto ([id number]) on 12/15/2018 10:53:55 AM Performing Organization Address City/State/Zipcode Ph one Number GE MUSE after 10/12/2018 Insurance Payer Benefit Subscriber ID Type Phone Address Plan / Group [facility] xxxxxxxxxxxx HMO/POS [facility] CHOICE EXCHANGE [phone]
--- OUTSIDE RECORDS SUMMARY | 2019-10-27 12:56 | XMS REPORT | Continuity of Care Document ---
Author Author [facility] t Organization [facility] Address [address] [place] [address] Phone Unavailable Care Team Providers Care Telegraph Operator Name Role Phone NONSTAFF PCP Unavailable KEVIN LOVE Unavailable Alyson Baker MD Attphys ALYSON BAKER Attphys Unavailable Mel Mims MD Attphys MEL MIMS Unavailable KEVIN LOVE Unavailable Payers Payer Name Policy Type Policy Number Effective Date Expiration Date [facility] OICE [id number] xxxxxxxxxxxx [facility] Problems Condition Name Condition Details Condition Category Status Onset Date Resolution Date Last Treatment Date Treating Clinician Comments Source Calculus of gallbladder with obstruction Problem Active [facility] Allergies, Adverse Reactions, Alerts Allergy Name Allergy Type Status Severity Reaction(s) Onset Date Inacti ve Date Treating Clinician Comments Source amoxicillin trihydrate DA Active [place] 2019-10-11 00:00:00 [facility] potassium clavulanate DA Active [place] 2019-10-11 00:00:00 [facility] amoxicillin trihydrate DA Active [place] 2010-07-19 00:00:00 [facility] potassium clavulanate DA Active [place] 2010-07-19 00:00:00 [facility] Family History Family Member Diagnosis Comments Start Date Stop Date Source Natural father Diabetes [facility] Maternal aunt Diabetes [facility] Maternal grandmother Cancer [facility] Maternal grandmother Diabetes [facility] Social History Social Habit Start Date Stop Date Quantity Comments Source History SDOH Alcohol Std Drinks [facility] History SDOH Alcohol Binge [facility] Sex Assigned At [facility] History SDOH Alcohol Frequency 2018-12-14 00:00:00 2018-12-14 00:00:0 0 1 [facility] Smoking Status Start Date Stop Date Source Never smoker [facility] Medications Ordered Medication Name Filled Medication Name Start Date Stop Da te Current Medication? Ordering Clinician Indication Dosage Frequency Signature (SIG) Comments Components Source ranitidine (ZANTAC) 150 MG capsule 2019-01-04 02:58:45 201 12-06-08 00:00:00 No 150mg Q.5D Take 150 mg by mouth 2 (two) times daily . [facility] pantoprazole (PROTONIX) 20 MG tablet 2019-01-04 00:00: 00 2020-01-04 23:59:00 No 20mg QD Take 1 tablet (20 mg total) by mouth lima gonzalez [facility] albuterol (ACCUNEB) 0.63 mg/3 mL nebulizer solution 12-14 20:34:09 Yes 1{ampule} Take 1 ampule by nebulization every 6 (six) hours as needed for Wheezing. [facility] fluticasone propion-salmeterol (ADVAIR) 100-50 mcg/dose disk us inhaler 2018-12-14 20:34:09 Yes 1{puff} Inhale 1 puff by mouth via inhaler every 12 (twelve) hours. [facility] norethindrone-ethinyl estradiol (JUNEL F E 04/17) 1 mg-20 mcg (21)/75 mg (7) per tablet 2018-12-14 20:33:32 Yes 1{tbl} QD Take 1 tablet by mouth daily. [facility] ranitidine (ZANTAC) 150 MG capsule 2018-12-14 00:00:00 202 23:59:00 No 150mg QD Take 1 capsule (150 mg total) by mouth d aily. [facility] Ketorolac Tromethamine (Toradol) 10 Mg TABLET Ketorola c Tromethamine (Toradol) 10 Mg TABLET Yes [address] [facility] Noreth A-Et Estra/Fe Fumarate (Microgestin Fe 1-20 Tab let) 1 Each TABLET Noreth A-Et Estra/Fe Fumarate (Microgestin Fe 1-20 Tablet) 1 Each TABLET Yes [facility] Pantoprazole Sodium (Protonix) 20 Mg TABLET. Pantopr azole Sodium (Protonix) 20 Mg TABLET. Yes [address] [facility] Vital Signs Vital Name Observation Time Observation Value Comments Source Body Temperature 2019-10-15 01:29:00 98.1 [degF] [facility] BMI (Body Mass Index) 2019-10-14 01:08:00 36.0 kg/m2 [facility] Weight 2019-10-13 22:43:00 223.13 [lb_av] [facility] Systolic blood pressure 2019-01-04 05:47:00 131 mm[Hg] [facility] Diastolic blood pressure 2019-01-04 05:47:00 77 mm[Hg] [facility] Heart rate 2019-01-04 05:47:00 81 /min [facility] Respiratory rate 2019-01-04 05:47:00 18 /min [facility] Body temperature 2019-01-04 02:55:00 37.28 Anais [facility] Body height 2019-01-04 02:55:00 167.6 cm [facility] Body weight Measured 2019-01-04 02:55:00 120.203 kg [facility] BMI 2019-01-04 02:55:00 42.77 kg/m2 [facility] Oxygen saturation in Arterial blood by Pulse oximetry 2018-03 02:55:00 98 /min [facility] Procedures Procedure Date / Time Performed Performing Clinician Jaye e Magnetic resonance cholangiopancreatography (MRCP) wit hout contrast 2019-10-14 00:00:00 [facility] CT of abdomen and pelvis without contrast 2019-10-13 00:00:[address] [facility] US ABDOMEN LIMITED 2019-01-04 04:25:00 Sidney Baker [facility] PLACE NEEDLE IN VEIN 2019-01-04 04:12:31 Sidney Baker [facility] BASIC METABOLIC PANEL (7) 2019-01-04 04:12:00 Sidney Baker [facility] LIPASE 2019-01-04 04:12:00 Sidney Baker [facility] HEPATIC FUNCTION PANEL 2019-01-04 04:12:00 Sidney Baker [facility] CBC W/PLT COUNT & AUTO DIFFERENTIAL 2019-01-04 04:12:00 iSdney Baker [facility] RHYTHM STRIP - SCAN 2018-12-22 17:40:25 Provider, Tonja khan [facility] BASIC METABOLIC PANEL (7) 2018-12-14 22:42:00 Edelmira Mims se [facility] CREATINE KINASE (CK) 2018-12-14 22:42:00 Edelmira Mims [facility] TROPONIN I 2018-12-14 22:42:00 Edelmira Mims [facility] LIPASE 2018-12-14 22:42:00 Edelmira Mims [facility] HEPATIC FUNCTION PANEL 2018-12-14 22:42:00 Edelmira Mims [facility] XR CHEST 2 VIEWS 2018-12-14 22:30:00 Edelmira Mims [facility] SCREEN, URINE 2018-12-14 21:45:00 Edelmira Mims [facility] CBC W/PLT COUNT & AUTO DIFFERENTIAL 2018-12-14 21:45:00 Roberto Mims [facility] ED ECG INTERPRETATION 2018-12-14 20:55:42 Edelmira Mims [facility] ECG 12-LEAD 2018-12-14 20:25:33 Edelmira Mims [facility] Plan of Care Planned Activity Planned Date Details Comments Source Instructions Abdominal Pain - Adult [facility] Instructions Cholelithiasis [facility] Encounters Start Date/Time End Date/Time Encounter Type Admission Type Attendi [facility] Care Department Encounter ID Source 2019-10-13 21:05:00 2019-10-15 08:10:00 Discharged Inpatient 1 KEVIN LOVE [facility] [id number] [facility] Results Test Description Test Time Test Comments Results Result Comments Source Serum or plasma sodium measurement (moles/volume) 2019-10-15 05:05:00 Test Item Sodium Level (test code = 2951-2) 136 136-145 [facility] potassium [facility] (moles/volume)2019-10-15 05:05:00* Test Item Value Reference Range Interpretation Comments Potassium Level (test code = 2823-3) 3.7 3.5-5.1 [facility] chloride measurement (moles/volume)2019-10-15 05:05:00* Test Item Value Reference Range Interpretation Comments Chloride Level (test code = 2075-0) 104 98-107 [facility] plasma carbon dioxide, total measurement (moles/volume)2019-10-15 05:05:00* Test Item Value Reference Range Interpretation Comments Carbon Dioxide Level (test code = 2028-9) 25 22-29 [facility] plasma anion [id number] 05:05:00* Test Item Value Reference Range Interpretation Comments Anion Gap (test code = 57287-6) 10.7 8-16 [facility] plasma urea nitrogen measurement (mass/volume)2019-10-15 05:05:00* Test Item Value Reference Range Interpretation Comments Blood Urea Nitrogen (test code = 3094-0) < 5 7-26 [facility] plasma creatinine measurement (mass/volume)2019-10-15 05:05:00* Test Item Value Reference Range Interpretation Comments Creatinine (test code = 2160-0) 0.71 0.57-1.11 [facility] plasma urea nitrogen/creatinine mass [id number] 05:05:00* Test Item Value Reference Range Interpretation Comments BUN/Creatinine Ratio (test code = 3097-3) 7 6-[address] [facility] HospitalEstimated glomerular filtration rate (GFR) utgykmvvtvssz0953-74-90 05:05:00* Test Item Value Reference Range Interpretation Comments Estimat Glomerular Filtration Rate (test code = 300486964) > 60 >60 Ranges were taken from the National Kidney Disease Education Program and the [facility] literature.Reference ranges:60 or greater: Gtkwfg42-39 ( for 3 consecutive months): Chronic kidney disease 15 or less: Kidney failureCH[facility] HospitalGlucose smqfvfewrpu0784-69-83 05:05:00* Test Item Value Reference Range Interpretation Comments Glucose Level (test code = YPY7937) 128 74-118 [facility] plasma calcium measurement (mass/volume)2019-10-15 05:05:00* Test Item Value Reference Range Interpretation Comments Calcium Level (test code = 71252-9) 8.6 8.4-10.2 [facility] plasma total bilirubin measurement (mass/volume)2019-10-15 05:05:00* Test Item Value Reference Range Interpretation Comments Total Bilirubin (test code = 1975-2) 3.6 0.2-1.[address] [facility] HospitalFluoroscopic procedure less than one hour yhbxcbhv7378-36-75 05:05:00* Test Item Value Reference Range Interpretation Comments Aspartate Amino Transf (AST/SGOT) (test code = Aspartate Amino Transf (AST/SGOT)) 79 5-34 [facility] plasma alanine aminotransferase measurement (enzymatic activity/volume)2019-10-15 05:05:00* Test Item Value Reference Range Interpretation Comments Alanine Aminotransferase (ALT/SGPT) (test code = 1742-6) 122 0-55 [facility] or plasma protein measurement (mass/volume)2019-10-15 05:05:00* Test Item Value Reference Range Interpretation Comments Total Protein (test code = 2885-2) 6.5 6.5-8.1 [facility] or plasma albumin measurement (mass/volume)2019-10-15 05:05:00* Test Item Value Reference Range Interpretation Comments Albumin (test code = 1751-7) 2.9 3.5-5.[address] [facility] HospitalPlasma globulin measurement (mass/volume) 2019-10-15 05:05:00* Test Item Value Reference Range Interpretation Comments Globulin (test code = 58739-2) 3.6 2.3-3.5 [facility] or plasma albumin/globulin mass [id number] 05:05:00* Test Item Value Reference Range Interpretation Comments Albumin/Globulin Ratio (test code = 1759-0) 0.8 0.8-2.0 [facility] plasma alkaline phosphatase measurement (enzymatic activity/volume)2019-10-15 05:05:00* Test Item Value Reference Range Interpretation Comments Alkaline Phosphatase (test code = 6768-6) 99 40-[address] [facility] HospitalBlood leukocytes automated count (number/volume)2019-10-14 04:55:00* Test Item Value Reference Range Interpretation Comments White Blood Count (test code = 6690-2) 4.59 4.8-10.[address] [facility] HospitalBlood erythrocytes automated count (number/volume)2019-10-14 04:55:00* Test Item Value Reference Range Interpretation Comments Red Blood Count (test code = 789-8) 4.06 3.6-5.[address] [facility] HospitalBlood hemoglobin measurement (moles/volume)2019-10-14 04:55:00* Test Item Value Reference Range Interpretation Comments Hemoglobin (test code = 65265-8) 11.0 12.0-16.[address] [facility] HospitalAutomated blood hematocrit (volume fraction)2019-10-14 04:55:00* Test Item Value Reference Range Interpretation Comments Hematocrit (test code = 4544-3) 34.2 34.2-44.[address] [facility] HospitalAutomated erythrocyte mean corpuscular lfzmil1746-27-49 04:55:00* Test Item Value Reference Range Interpretation Comments Mean Corpuscular Volume (test code = 787-2) 84.2 81-[address] [facility] HospitalAutomated erythrocyte mean corpuscular hemoglobin (mass per erythrocyte)2019-10-14 04:55:00* Test Item Value Reference Range Interpretation Comments Mean Corpuscular Hemoglobin (test code = 785-6) 27.1 28-[address] [facility] HospitalAutecu [facility] erythrocyte mean corpuscular hemoglobin concentration measurement (mass/volume)2019-10-14 04:55:00* Test Item Value Reference Range Interpretation Comments Mean Corpuscular Hemoglobin Concent (test code = 786-4) 32.2 31-[address] [facility] HospitalRDW MwcPf-Nci6074-29-18 04:55:00* Test Item Value Reference Range Interpretation Comments Red Cell Distribution Width (test code = 80974-4) 13.9 11.7 -14.[address] HospitalAutasheville specialty hospitaled blood platelet count (count/volume)2019-10-14 04:55:00* Test Item Value Reference Range Interpretation Comments Platelet Count (test code = 777-3) 202 140-[address] HospitalAutasheville specialty hospitaled blood segmented neutrophil count as percentage of total pqxqgmtghx4366-71-81 04:55:00* Test Item Value Reference Range Interpretation Comments Neutrophils (%) (Auto) (test code = 70228-0) 57.2 38.7-80.[address] HospitalAutomated blood lymphocyte count as percentage ot total fekxzopnbl1006-49-77 04:55:00* Test Item Value Reference Range Interpretation Comments Lymphocytes (%) (Auto) (test code = 736-9) 30.1 18.0-39.[address] [facility] HospitalAutomated blood monocyte count as percentage of total svdpisdkbx1352-08-99 04:55:00* Test Item Value Reference Range Interpretation Comments Monocytes (%) (Auto) (test code = 5905-5) 10.5 4.4-11.[address] [facility] HospitalAutomated blood eosinophil count as percentage of total fmytylqvuo1426-29-92 04:55:00* Test Item Value Reference Range Interpretation Comments Eosinophils (%) (Auto) (test code = 713-8) 1.3 0.0-6.[address] HospitalAutomated blood basophil count as percentage of total moottvkzge3976-02-67 04:55:00* Test Item Value Reference Range Interpretation Comments Basophils (%) (Auto) (test code = 706-2) 0.7 0.0-1.[address] HospitalFluoroscopic procedure less than one hour gjneqtsz8367-48-77 04:55:00* Test Item Value Reference Range Interpretation Comments IM GRANULOCYTES % (test code = IM GRANULOCYTES %) 0.2 0.0- 1.[address] HospitalAutomated blood neutrophil count 2019-10-14 04:55:00* Test Item Value Reference Range Interpretation Comments Neutrophils # (Auto) (test code = 751-8) 2.6 2.1-6.[address] [facility] HospitalBlood lymphocytes count (number/volume) 2019-10-14 04:55:00* Test Item Value Reference Range Interpretation Comments Lymphocytes # (Auto) (test code = 54303-8) 1.4 1.0-3.[address] [facility] HospitalBlood monocytes automated count (number/volume)2019-10-14 04:55:00* Test Item Value Reference Range Interpretation Comments Monocytes # (Auto) (test code = 742-7) 0.5 0.2-0.[address] [facility] HospitalAutomated blood eosinophil count 2019-10-14 04:55:00* Test Item Value Reference Range Interpretation Comments Eosinophils # (Auto) (test code = 711-2) 0.1 0.0-0.[address] [facility] HospitalAutomated blood basophil count (count/volume)2019-10-14 04:55:00* Test Item Value Reference Range Interpretation Comments Basophils # (Auto) (test code = 704-7) 0.0 0.0-0.[address] [facility] HospitalFluoroscopic procedure less than one hour tbtozmnv3129-95-34 04:55:00* Test Item Value Reference Range Interpretation Comments Absolute Immature Granulocyte (auto (shahriar t code = Absolute Immature Granulocyte (auto) 0.01 0-0.[address] [facility] HospitalFluoroscopic procedure less than one hour jvhdvhhm9789-24-17 04:55:00* Test Item Value Reference Range Interpretation Comments Differential Total Cells Counted (test code = Wilda tial Total Cells Counted) 100 [facility] neutrophils/100 leukocytes 2019-10-14 04:55:00* Test Item Value Reference Range Interpretation Comments Neutrophils % (Manual) (test code = 57200-0) 59 40-74 [facility] blood lymphocytes/100 leukocytes 2019-10-14 04:55:00* Test Item Value Reference Range Interpretation Comments Lymphocytes % (Manual) (test code = 737-7) 30 19-48 [facility] blood monocytes/100 leukocytes 2019-10-14 04:55:00* Test Item Value Reference Range Interpretation Comments Monocytes % (Manual) (test code = 744-3) 9 3.4-9.0 [facility] blood eosinophil count as percentage of total zkqzjidghx8990-39-17 04:55:00* Test Item Value Reference Range Interpretation Comments Eosinophils % (Manual) (test code = 714-6) 1 0-[address] HospitalManual basophil pnqihgdlil6231-79-16 04:55:00* Test Item Value Reference Range Interpretation Comments Basophils % (Manual) (test code = 11682-2) 1 0-1.[address] [facility] HospitalBlbigfork valley hospital platelets count by estimate (number/volume)2019-10-14 04:55:00* Test Item Value Reference Range Interpretation Comments Platelet Estimate (test code = 79262-7) ADEQUATE [facility] HospitalPlatelet ssuxwmyhpt9686-06-41 04:55:00* Test Item Value Reference Range Interpretation Comments Platelet Morphology Comment (test code = 54227-4) NORMAL [facility] HospitalRBC wumutexhuq2938-46-78 04:55:00* Test Item Value Reference Range Interpretation Comments Red Cell Morphology Comment (test code = 6742-1) NORMAL [facility] or plasma amylase measurement (enzymatic activity/volume)2019-10-14 04:55:00* Test Item Value Reference Range Interpretation Comments Amylase Level (test code = 1798-8) 28 25-125 [facility] or plasma lipase measurement (enzymatic activity/volume)2019-10-14 04:55:00* Test Item Value Reference Range Interpretation Comments Lipase (test code = 3040-3) 15 8-[address] [facility] HospitalMRI MRCP [id number] 02:10:00 [facility] [address] [address] Patient Name: NEREIDA PAVON MR #: [id number] : 1995 Age/Sex: 24/F Req #: [id number] Adm Physician: KEVIN LOVE MD Ordered by: ALBERT RM MD Report #: [id number] Location: MED/SURG R [facility]/Bed: [facility] Procedure: [id number] MRI/MRI M ENGINEERING TEST SPECIALIST WO Exam Date: Exam Time: REPORT STATUS: [...] Transcribed By: MEREDITH on 221 COPY TO: ALBERT RM MD CT ABDOMEN/PELVIS WO 2019-10-13 20:09:00 [address] [address] Patient Name: NEREIDA PAVON MR #: [id number] : 1995 Age/Sex: 24/F Req #: [id number] Adm Physician: Ordered by: KAE CANNON DO Report #: [id number] Location: ER Room/Bed: Procedure: [id number] CT/CT ABDOMEN /PELVIS WO Exam Date: 10/13/19 [...] COPY TO: KAE CANNON DO Urine color pzuafofjhqvgw3166-70-04 18:33:00* Test Item Value Reference Range Interpretation Comments Urine Color (test code = 5778-6) MARCO YELLOW [facility] HospitalUrine gneaxdp4870-82-01 18:33:00* Test Item Value Reference Range Interpretation Comments Urine Clarity (test code = 78929-8) SL CLOUDY CLEAR [facility] gravity of Urine by Test strip 2019-10-13 18:33:00* Test Item Value Reference Range Interpretation Comments Urine Specific [place] (test code = 5811-5) 1.020 1.010-1.[address] [facility] HospitalUrine pH measurement by automated test [id number] 18:33:00* Test Item Value Reference Range Interpretation Comments Urine pH (test code = 66022-3) 7 5-[address] [facility] HospitalUrine leukocyte esterase detection by xbeneyvu3777-42-57 18:33:00* Test Item Value Reference Range Interpretation Comments Urine Leukocyte Esterase (test code = 5799-2) NEGATIVE NEGATIVE [facility] HospitalUrine nitrite trdwbggad2686-75-59 18:33:00* Test Item Value Reference Range Interpretation Comments Urine Nitrite (test code = 54700-6) NEGATIVE NEGATIVE [facility] HospitalUrine protein measurement by test strip (mass/volume)2019-10-13 18:33:00* Test Item Value Reference Range Interpretation Comments Urine Protein (test code = 5804-0) NEGATIVE NEGATIVE [facility] HospitalUrine glucose fwladklfi8014-97-18 18:33:00* Test Item Value Reference Range Interpretation Comments Urine Glucose (UA) (test code = 2349-9) NEGATIVE NEGATIVE [facility] HospitalUrine ketones detection by automated test kbrgk1446-92-01 18:33:00* Test Item Value Reference Range Interpretation Comments Urine Ketones (test code = 88443-1) 1+ NEGATIVE [facility] HospitalUrine urobilinogen measurement by test strip (mass/volume)2019-10-13 18:33:00* Test Item Value Reference Range Interpretation Comments Urine Urobilinogen (test code = 99378-5) 1 0.2-[address] [facility] HospitalUrine total bilirubin measurement (mass/volume)2019-10-13 18:33:00* Test Item Value Reference Range Interpretation Comments Urine Bilirubin (test code = 1978-6) LARGE NEGATIVE [facility] HospitalUrine erythrocytes dwigzigbk0525-96-76 18:33:00* Test Item Value Reference Range Interpretation Comments Urine Blood (test code = 65964-1) NEGATIVE NEGATIVE [facility] HospitalAutomated urine sediment leukocyte count by microscopy (number/high power field)2019-10-13 18:33:00* Test Item Value Reference Range Interpretation Comments Urine WBC (test code = 5821-4) NONE 0-[address] [facility] HospitalErythrocytes detection in urine sediment by light ojeeyxvqmd4250-87-43 18:33:00* Test Item Value Reference Range Interpretation Comments Urine RBC (test code = 37986-9) NONE 0-[address] [facility] HospitalBacteria detection in urine sediment by light mmhgebwqaq1679-03-82 18:33:00* Test Item Value Reference Range Interpretation Comments Urine Bacteria (test code = 83561-8) MANY NONE [facility] HospitalEpithelial cells detection in urine sediment by light vafxdrgnst6004-81-13 18:33:00* Test Item Value Reference Range Interpretation Comments Urine Epithelial Cells (test code = 73862-2) MODERATE NONE [facility] HospitalTransitional cells detection in urine sediment by light gztfwgwsqu6978-40-89 18:33:00* Test Item Value Reference Range Interpretation Comments Urine Transitional Epithelial Cells (test code = 8249-5) FEW NONE [facility] HospitalUrine human chorionic gonadotropin (hCG) opzgdenae2083-04-17 18:33:00* Test Item Value Reference Range Interpretation Comments Urine Test (test code = 2106-3) NEGATIVE NEGATIVE [facility]- US ABDOMEN [id number] 23:00:00 Name: NEREIDA PAVON [facility] : 1995 Age/S: 24 / F [address] [facility] Unit #: [id number] Loc: [place] [address] Phys: Rei Mendenhall MD Acct: [id number] Di s Date: Status: REG ER PHONE #: Exam Date: 10/11/20194 FAX #: Reason: RUQ pain EXAMS: CPT CODE: [id number] [place] [id number] EXAM: - US ABDOMEN LTD HISTORY: Pain [...] Rach Martinez MD CC: Rei Mendenhall MD Cari hnologist: Loretta Jamison RDMS Trnscb Date/Ti me: 10/11/2019 (2299) [email or web address] Orig Print D/T: S: 2019 (2302) Probe: PAGE 1 Fani d Report BASIC METABOLIC [id number] 22:20:00 * Test Item Value Reference Range [...] CA) 8.6 mg/dL 8.4-10.2 N HEPATIC FUNCTION [id number] 22:20:00* Test Item Value Reference Range Interpretation [...] code = ALKP) 100 U/L 38-126 N [id number] 22:20:00* Test Item Value Reference Range Interpretation Comments LIPASE (test code = LIP) 85 U/L 128-270 L DRUGS OF ABUSE SCREEN [id number] 22:14:00* Test Item Value Reference Range Interpretation [...] = PHENCURN) NEGATIVE NEGATIV E CBC W/O [id number] 22:02:00* Test Item Value Reference Range Interpretation [...] = MPV) 9.7 fL 6.7-11.0 N URINALYSIS [id number] 21:17:00* Test Item Value Reference Range Interpretation Comments UA COLOR (test code = COLU) Dark Avery YELLOW UA APPEARANCE (test code = APPU) [...] LPF NONE-FEW Urine Source? Clean CatchUR HCG [id number] 21:17:00* Test Item Value Reference Range Interpretation Comments UR HCG QUAL (test code = HCGQLU) NEGATIVE This HCGQL test is NOT applicable for MALE patients.Check with nurse about probable order error.If Tumor Marker Test needed, nurse should order test "HCGTU"(Test #550.10290) Urine Source? Clean CatchURINALYSIS [id number] 21:14:00* Test Item Value Reference Range Interpretation Comments UA COLOR (test code = COLU) Dark Avery YELLOW UA APPEARANCE (test code = APPU) [...] HPF NONE Urine Source? Clean CatchUR HCG [id number] 21:14:00* Test Item Value Reference Range Interpretation Comments UR HCG QUAL (test code = HCGQLU) NEGATIVE This HCGQL test is NOT applicable for MALE patients.Check with nurse about probable order error.If Tumor Marker Test needed, nurse should order test "HCGTU"(Test #550.25375) Urine Source? Clean CatchURINALYSIS [id number] 21:13:00* Test Item Value Reference Range Interpretation Comments UA COLOR (test code = COLU) Dark Avery YELLOW UA APPEARANCE (test code = APPU) [...] HPF NONE Urine Source? Clean CatchUR HCG [id number] 21:13:00* Test Item Value Reference Range Interpretation Comments UR HCG QUAL (test code = HCGQLU) Urine Source? Clean CatchU/S, ABDOMINAL, [id number] 04:49:00Abdomen limited area? Add comment if clarification [...] the right upper abdomen. Signed: Marie Lopez MDReport Verified Date/Time: 01/04/2019 04:49:17 abdomen [id number] 04:49:00Interface, External Ris In - 01/04/2019 4:51 [...] of the right upper abdomen. Signed: Marie Lopezeport Verified Da te/Time: 01/04/2019 04:49:17 [facility] (Na, K+, Cl, CO2, [...] 93 mg/dL 70-105 Calcium (test code = 11618-9) 9.2 mg/dL 8.4-10.2 EGFR (test code = 95759-5) 128 mL/min/1.73 sq m ESTIMATED GFR IS NOT ACCURATE CREATININE CLEARANCE IN PREDICTING GLOMERULAR FILTRATION RATE. ESTIMATED GFR IS NOT APPLICABLE FOR DIALYSIS PATIENTS. Lab Interpretation (test code = 86814-7) Abnormal [facility] HospitalLiver [id number] 04:48:00* Test Item Value Reference Range Interpretation Comments Protein, Total (test code = 2885-2) 7.5 6.0- 8.3 gm/dL Albumin (test code = 57304-6) 4.0 g/dL 3.5-5 Total Bilirubin (test code = 1974-2) 0.3 mg/dL 0.2-1.2 Bilirubin, Direct (test code = 1967-7) 0.2 mg/dL 0.1-0.5 Alkaline Phosphatase (test code = 6768-6) 61 U/L 40-150 AST (test code = 1920-8) 14 U/L 5-34 ALT (test code = 1742-6) 22 U/L 6-55 Lab Interpretation (test code = 78330-0) Normal [facility] 04:48:00* Test Item Value Reference Range Interpretation Comments Lipase (test code = 3040-3) 11 U/L 8-78 Lab Interpretation (test code = 19103-9) Normal [facility]2019-[facility] 04:48:00* Test Item Value Reference Range Interpretation Comments LIPASE (BEAKER) (test code = 749) 11 U/L 8-78 BASIC METABOLIC [id number] 04:48:00* Test Item Value Reference Range Interpretation [...] NOT APPLICABLE FOR DIALYSIS PATIENTS. HEPATIC FUNCTION [id number] 04:48:00* Test Item Value Reference Range Interpretation [...] 6-55 CBC with platelet count + automated [id number] 04:25:00* Test Item Value Reference Range Interpretation [...] 450 K/CU MM MPV (test code = 90189-1) 9.8 fL 9.4-12.3 nRBC (test code = [...] % 0-1 Lab Interpretation (test code = 09974-0) Abnormal [facility] W/PLT COUNT & AUTO [id number] 04:25:00* Test Item Value Reference Range Interpretation [...] code = 2801) 0 % 0-1 PIV [id number] 04:12:31SaSidney grider MD 01/04/2019 4:15 AMPIV InsertionDate/Time: 01/04/2019 4:14 AMPerformed by: Sidney Baker MDAuthorized by: Sidney Baker MD Preparation: Patient was prepped and draped in the usual sterile fashion.Indication: difficult access.Location: left external jugular. Needle gauge: 20Number of attempts: 1Post-procedure: dressing appliedPost-procedure CMS: normalPatient tolerance: Patient tolerated the procedure well with no immediate complications [facility] 12 [id number] 10:53:58Interface, External Ris In - 12/15/2018 10:54 AM CDTVentricular Rate 84 BPMAtrial Rate 84 BPMP-R Interval 180 msQRS Duration 104 msQ-T Interval 372 msQTC Calculation(Bazett) 439 msP [place] 53 degreesR [place] 32 degreesT [place] 43 degreesNormal sinus rhythm with sinus arrhythmiaNormal ECGNo previous ECGs availableConfirmed by MD Kennedy Roberto ([id number]) on 12/15/2018 10:53:55 [place] [facility] [place])2018-12-14 23:38:00* Test Item Value Reference Range Interpretation Comments Troponin I (test code = 66343-6) <0.01 0-0.03 PRAFUL (test code = PRAFUL) [...] persistent tachyarrhythmia. Lab Interpretation (test code = 97691-8) Normal [facility] [id number] 23:38:00* Test Item Value Reference Range Interpretation [...] U/L 29-200 Lab Interpretation (test code = 95630-5) Normal [facility] HospitalCREAT[facility] K[facility]ASE (CK)2018-12-14 23:32:00* Test Item Value Reference Range Interpretation Comments CREATINE KINASE TOTAL (BEAKER) (test code = 380) 142 U/L 29-20 0 [id number] 23:32:00* Test Item Value Reference Range Interpretation Comments LIPASE (BEAKER) (test code = 749) 10 U/L 8-78 BASIC METABOLIC [id number] 23:32:00* Test Item Value Reference Range Interpretation [...] NOT APPLICABLE FOR DIALYSIS PATIENTS. HEPATIC FUNCTION [id number] 23:32:00* Test Item Value Reference Range Interpretation [...] 347) 22 U/L 6-55 RAD, CHEST, 2 [id number] 22:43:00Reason for exam:->CHEST PAINFINAL REPORT INDICATION: CHEST PAIN COMPARISON: July 28, 2003 TECHNIQUE: Chest radiograph, two views, PA and lateral. FINDINGS / IMPRESSION:Lung volumes are normal and lungs clear.Heart shadow normal in size.No pneumothorax or pleural effusion demonstrated.Osseous structures unremarkable. Signed: Scar Garza Verified Date/Time: 12/14/2018 22:43:12 Reading Location: [address] Consult Reading Room chest 2 [id number] 22:43:00Interface, External Ris In - 12/14/2018 10:45 PM CDTFINAL REPORT INDICATION: CHEST PAIN COMPARISON: July 28, 2003 TECHNIQUE: Chest radiograph, two views, PA and lateral. FINDINGS / IMPRESSION:Lung volumes are normal and lungs clear.Heart shadow normal in size.No pneumothorax or pleural effusion dem onstrated.Osseous structures unremarkable. Signed: Scar Garza Marla ified Date/Time: 12/14/2018 22:43:12 Reading Location: [place] [id number] Consult [place] ding Room [facility]Pregnancy Screen, [id number] 22:00:00 * Test Item Value Reference Range Interpretation Comments Preg Test, Ur (test code = 2112-1) Negative [facility] HospitalPREGNANCY SCREEN, [id number] 22:00:00* Test Item Value Reference Range Interpretation Comments TEST URINE (BEAKER) (test code = 583) Negative CBC W/PLT COUNT & AUTO [id number] 21:54:00* Test Item Value Reference Range Interpretation [...] code = 2801) 1 % 0-1 ECG/EKG [id number] 20:55:42Edelmira Mims MD 12/16/2018 3:16 PMECG/EKG InterpretationDate/Time: 12/14/2018 8:25 PMPerformed by: Edelmira Mims MDAuthorized by: Edelmira Mims MD The ECG was interpreted by ED physician. This ECG was compared with previous ECG(s).The ECG is interpreted as sinus rhythm. Rate is normal rate. Heart rate is 84 BPM.Conduction: conduction normal. ST segments normal. T waves normal. [place] is normal. Other findings: no other findings. Clinical Impression: normal ECGECG reviewed and does not meet STEMI criteria. Patient tolerance: Patient tolerated the procedure well with no immediate complications [facility]
== END 2019-10-15 08:10 | disposition home or self-care (01) ==
LOC: ER 14:20 → ERHOLD 21:05 → INTOOBSV 21:05 → MED/SURG2 22:12
PROVIDERS: ADMIT Surgery; ATTEND Surgery
DX: K80.12 Calculus of gallbladder with acute and chronic cholecystitis without obstruction (principal); Z11.59 Encounter for screening for other viral diseases
CPT/HCPCS: 36415 ×3; 47562; 74176; 74181; 80053 ×3; 81001; 81025; 82150; 83690 ×2; 85025 ×2; 88304; 96360; 96361; 99284; G0378 ×3; J0131; J1100; J2001; J2270; J2405; J2543 ×3; J2704; J3010; J7030; S0164; U0002; 99282

== ENCOUNTER 2022-07-19 21:36 | Emergency (ER) | payer OTHER ==
[~2022-07-19] VITALS: Ht 167.6 cm; Wt 101.2 kg
[~2022-07-19 21:36] MED LIST: KETOROLAC TROME10 MG PO; MICROGESTIN FE1 EAC1; PROTONIX20 MG PO
== END 2022-07-19 22:26 | disposition home or self-care (01) ==
LOC: ER 22:03
DX: S61.212A Laceration without foreign body of right middle finger without damage to nail, initial encounter (principal); W26.8XXA Contact with other sharp object(s), not elsewhere classified, initial encounter; Y93.89 Activity, other specified
CPT/HCPCS: 99282